=== PATIENT | male | born 1980 | race Two or more races ===

== ENCOUNTER 2019-05-01 11:18 | Emergency (ER) | payer OTHER ==
[2019-05-01 11:27] VITALS: TEMP 98.4; BMI 31.7
--- NOTE | 2019-05-01 12:52 | PDOC ---
History of Present Illness - History of Present Illness Initial Comments: Mr. Gricelda Quinn is a 38M with PMH of HLD presenting today with bilateral arm pain, heart palpitations, and shortness of breath that have since resolved. Reports that around 9am this morning he felt his heart racing and difficulty breathing, and shooting pain up both of his upper extremities. Reports that he has had similar episodes before. Reports that his living situation (with girlfriend and girlfriend's mother and his son) is occasionally stressful. Denies fever, chest pain, nausea/vomiting, cough. Reports that his father who is still living had some hx of heart disease, but is unsure of diagnosis. <Niranjan Grayson - Last Filed: 05/01/19 17:17> <Jazmin Pineda - Last Filed: 05/02/19 08:12> - General Chief Complaint: Chest Pain Stated Complaint: CHEST PAIN Time Seen by Provider: 05/01/19 11:56 Past History - Past Medical History COPD: No - Suicide/Smoking/Psychosocial Hx Smoking History: Never smoked <Niranjan Grayson - Last Filed: 05/01/19 17:17> <Jazmin Pineda - Last Filed: 05/02/19 08:12> - Past Medical History Allergies/Adverse Reactions: Allergies Allergy/AdvReac Type Severity Reaction Status Date / Time No Known Allergies Allergy Verified 05/01/19 11:27 Home Medications: Ambulatory Orders NK [No Known Home Medication] 05/01/19 Review of Systems - Review of Systems Comments:: GENERAL/CONSTITUTIONAL: No fever or chills. No weakness._ HEAD, EYES, EARS, NOSE AND THROAT: No change in vision. No ear pain or discharge. No sore throat._ CARDIOVASCULAR: No chest pain. Reports palpitations (resolved). Reports shortness of breath (resolved). RESPIRATORY: Denies cough, hemoptysis_ GASTROINTESTINAL: No nausea, vomiting, diarrhea or constipation._ GENITOURINARY: No dysuria, frequency, or change in urination._ MUSCULOSKELETAL: No joint. No neck or back pain. Reports pain in bilateral upper extremities. SKIN: No rash_ NEUROLOGIC: No headache, vertigo, loss of consciousness, or change in strength/ sensation._ ENDOCRINE: No increased thirst. No abnormal weight change_ HEMATOLOGIC/LYMPHATIC: No anemia, easy bleeding, or history of blood clots._ ALLERGIC/IMMUNOLOGIC: No hives or skin allergy._ <Niranjan Grayson - Last Filed: 05/01/19 17:17> *Physical Exam - Vital Signs Last Vital Signs Temp Pulse Resp BP Pulse Ox 98.4 F 94 H 18 118/80 100 05/01/19 11:24 05/01/19 11:24 05/01/19 11:24 05/01/19 11:24 05/01/19 11:24 - Physical Exam Comments: GENERAL: Awake, alert, and oriented to person/place/time, in no acute distress_ HEAD: No signs of trauma, normocephalic, atraumatic _ EYES: PERRLA, EOMI, sclera anicteric, conjunctiva clear_ ENT: Hearing grossly normal, nares patent, oropharynx clear without exudates. No uvular deviation. Moist mucosa_ NECK: Normal ROM, supple, no lymphadenopathy, JVD, or masses_ LUNGS: No distress, speaks in full sentences, clear to auscultation bilaterally _ HEART: Regular rate and rhythm, normal S1 and S2, no murmurs appreciated, peripheral pulses normal and equal bilaterally._ ABDOMEN: Soft, nontender, normoactive bowel sounds. No guarding, no rebound. No masses_ EXTREMITIES: Normal inspection, Normal range of motion, no edema. No clubbing or cyanosis_ NEUROLOGICAL: Cranial nerves II through XII grossly intact. Normal speech, normal gait, no focal sensorimotor deficits _ SKIN: Warm, Dry, normal turgor, no rashes or lesions noted_ <Niranjan Grayson - Last Filed: 05/01/19 17:17> - Vital Signs Last Vital Signs Temp Pulse Resp BP Pulse Ox 98.4 F 72 24 H 129/88 98 05/01/19 16:00 05/01/19 16:00 05/01/19 16:00 05/01/19 16:00 05/01/19 16:00 <Jazmin Pineda - Last Filed: 05/02/19 08:12> ED Treatment Course - LABORATORY CBC & Chemistry Diagram: 05/01/19 13:33 05/01/19 13:32 <Niranjan Grayson - Last Filed: 05/01/19 17:17> - LABORATORY CBC & Chemistry Diagram: 05/01/19 13:33 05/01/19 13:32 - ADDITIONAL ORDERS Additional order review: 05/01/19 13:33 RBC 5.05 MCV 82.8 MCHC 32.4 RDW 13.9 MPV 8.3 Neutrophils % 79.3 Lymphocytes % 14.8 Monocytes % 5.0 Eosinophils % 0.4 Basophils % 0.5 <Jazmin Pineda - Last Filed: 05/02/19 08:12> Medical Decision Making - Medical Decision Making 05/01/19 13:15 38M with hx of HLD, paternal hx of heart disease (unsure diagnosis), presenting today with heart palpitations, shortness of breath, and bilateral arm pain. Reports that he has had similar symptoms before and has been seeing a concert or lecture hall manager but is unsure of current diagnosis or plan. Reports occasional stressors at home. DDx includes ACS vs anxiety attack. We'll obtain CBC, CMP, CXR, EKG, troponins, magnesium. 05/01/19 13:40 EKG shows NSR, 85 bpm, no axis deviation, no ST elevation or depression, QTc 433 ms. 05/01/19 14:22 CXR shows no infiltrate or edema in the lungs, no acute intrathoracic process. 05/01/19 14:27 Troponin wnl. Will obtain repeat trop at 1630. 05/01/19 16:31 Repeat EKG shows NSR, 84 bpm, no axis deviation, no ST elevation or depression, QTc 460. 05/01/19 16:52 Repeat troponin wnl. 05/01/19 17:00 Patient reassessed. No CP, SOB. We will plan to d/c home and follow up with PCP and his concert or lecture hall manager. Diagnosis is likely anxiety related given social stressors at home and normal CXR and initial/repeat EKG and troponin. <Niranjan Grayson - Last Filed: 05/01/19 17:17> *DC/Admit/Observation/Transfer - Discharge Dispostion Decision to Admit order: No <Niranjan Grayson - Last Filed: 05/01/19 17:17> <Jazmin Pineda - Last Filed: 05/02/19 08:12> Diagnosis at time of Disposition: Paresthesia, Chest pain - Discharge Dispostion Disposition: HOME Condition at time of disposition: Stable - Referrals Referrals: Deejay,Ernesto, MD [Primary Care Provider] - - Patient Instructions Printed Discharge Instructions: DI for Chest Pain, DI for Atypical Chest Pain Additional Instructions: Please follow up with your PCP and your concert or lecture hall manager in 1 week. - Post Discharge Activity Forms/Work/School Notes: Back to Work
--- NOTE | 2019-05-01 13:07 | PDOC ---
Documentation entered by Marley Pedraza SCRIBE, acting as scribe for Jazmin Pineda MD. Jazmin Pineda MD: This documentation has been prepared by the Milo mendoza Xhesika, SCRIBE, under my direction and personally reviewed by me in its entirety. I confirm that the documentation accurately reflects all work, treatment, procedures, and medical decision making performed by me. Attending Attestation - Resident Resident Name: Niranjan Grayson - ED Attending Attestation I have performed the following: I have examined & evaluated the patient, The case was reviewed & discussed with the resident, I agree w/resident's findings & plan - HPI HPI: 05/01/19 12:57 The patient is a 38 year old male with a significant past medical history of undiagnosed HTN and high cholesterol who presents to the ED with L arm discomfort that radiates upward to his neck and down his L arm since 9am. The patient is [place] speaking with son at bedside translating. Son reports, the patient was in bed at the sudden onset of his arm discomfort. The patient notes he endorsed SOB and chest palpitations that have since self resolved. As per son , the patient saw a log processor operator (does not remember name) 2 months ago. Denies fever, chills, chest pain, SOB, palpitation, dizziness, weakness, N, V, D , abdominal pain, bladder and bowel problems, leg swelling, No sick contacts or travel. No new changes in medications. Allergies: NKDA Social history: Lives with family. No tobacco, ETOH or drug use. Meds: as documented in EMR PCP: Ernesto Horn - Physicial Exam PE: 05/01/19 12:58 Agree with the resident's HPI and PE as documented in the electronic medical record. NAD, well appearing, EOMI, PERRL, MMM, nl conjunctiva, anicteric; neck supple. lungs clear, RRR, abdomen soft nontender. Back nontender. SOLIS x4, no focal neuro deficits. No peripheral edema. normal color for ethnicity, WWP. - Medical Decision Making 05/01/19 13:07 See HPI for details. Prior notes reviewed, including admissions, discharges and consultations. Vital signs reviewed, wnl. DDX PE, dissection, ACS, arrhythmia, neuropathy, radiculopathy, anxiety, electrolyte/metabolic derangements, esophageal spasm, GERD, PUD. PERC neg, so doubt PE. laboratory results and imaging reviewed, basic labs and lytes wnl CXR_no acute chest pathology Cardiac panel_neg trop x1, repeat also neg EKG normal sinus rhythm at 85 bpm, no interval abnormalities, narrow QRS, ST and T wave segments and morphology normal. ED course -no events, comfortable, no cp or sob or neuro changes or dizziness on assessment, trops neg x2, EKG unchanged w/o e/o ischemia Pt to be discharged in stable condition. Patient and family made aware of clinical impression, treatment recommendations and disposition plan, return precautions discussed (including but not limited to new or persistent/worsening symptoms, pain, fevers, or signs of infection, chest pain, respiratory distress , inability to tolerate oral intake, dehydration, syncope, or neurologic changes ). Follow up with PMD and/or specialist as recommended, follow up information provided, take medications as instructed for duration of time. continue with supportive care, avoid triggers and precipitants. All questions answered to patient's satisfaction and expressed understanding and comfort with this. At the time of discharge, the patient is alert, clinically improved, tolerating po and verbalizes understanding of instructions, satisfied with the care received and felt comfortable with the plan. Patient does not suffer from an acute life- threatening medical condition at this time and is safe for outpatient follow- up. 05/01/19 14:55 Heart Score/ECG Review #1 ECG reviewed & interpreted by me at: 11:15 General ECG Interpretation: Sinus Rhythm, Normal Rate, Normal Intervals Compared to previous ECG there are: Previous ECG unavail 05/01/19 14:58 EKG normal sinus rhythm at 85 bpm, no interval abnormalities, narrow QRS, ST and T wave segments and morphology normal.
[2019-05-01 14:14] LABS: BASO % 0.5 % (0-2.0); EOS % 0.4 % (0-4.5); HEMATOCRIT 41.8 % (35.4-49); HEMOGLOBIN 13.5 GM/dL (11.7-16.9); LYMPH % 14.8 % (8-40); MCH 26.8 pg (25.7-33.7); MCHC 32.4 g/dl (32.0-35.9); MEAN CELL VOLUME 82.8 fl (80-96); MEAN PLT VOLUME 8.3 fl (7.5-11.1); NEUT % 79.3 % (42.8-82.8); PLATELET COUNT 222 K/MM3 (134-434); RBC 5.05 M/mm3 (4.00-5.60); RDW 13.9 % (11.9-15.9)
[2019-05-01 14:28] LABS: ALBUMIN 3.9 g/dl (3.4-5.0); BILIRUBIN,TOTAL 0.6 mg/dL (0.2-1); BLOOD UREA NITROGEN 13.6 mg/dL (7-18); CALCIUM 8.3 mg/dL (8.5-10.1); CREATININE 0.8 mg/dL (0.55-1.3); POTASSIUM 4.3 mmol/L (3.5-5.1); TOT PROT 7.2 g/dl (6.4-8.2)
[2019-05-01 16:14] VITALS: BP 129/88; PULSE 72
--- NOTE | 2019-05-01 17:38 | EKG ---
Test Reason : Blood Pressure : / mmHG Vent. Rate : 085 BPM Atrial Rate : 085 BPM P-R Int : 154 ms QRS Dur : 094 ms QT Int : 364 ms P-R-T Axes : 062 -02 033 degrees QTc Int : 433 ms NORMAL SINUS RHYTHM NORMAL ECG NO PREVIOUS ECGS AVAILABLE Confirmed by CHAPARRITA FONSECA MD ([id number]) on 05/01/2019 5:38:03 PM Referred By: Confirmed By:CHAPARRITA FONSECA MD
--- NOTE | 2019-05-02 09:25 | EKG ---
Test Reason : Blood Pressure : / mmHG Vent. Rate : 084 BPM Atrial Rate : 084 BPM P-R Int : 146 ms QRS Dur : 098 ms QT Int : 390 ms P-R-T Axes : 049 -15 020 degrees QTc Int : 460 ms NORMAL SINUS RHYTHM NORMAL ECG WHEN COMPARED WITH ECG OF 01-MAY-2019 11:13, NO SIGNIFICANT CHANGE WAS FOUND Confirmed by CALOS GALLARDO MD ([id number]) on 05/02/2019 9:25:02 AM Referred By: Confirmed By:CALOS GALLARDO MD
== END 2019-05-01 17:39 | disposition home or self-care (01) ==
LOC: EDSEX 11:18 → JER 11:18
DX: R20.2 Paresthesia of skin (principal); R07.89 Other chest pain; E78.5 Hyperlipidemia, unspecified
CPT/HCPCS: 36415; 71045-TC-FY; 80053; 82550; 84484; 85025; 93005; 93010; 99284-25

== ENCOUNTER 2020-08-13 03:50 | Emergency (ER) | payer OTHER ==
[2020-08-13 03:59] VITALS: BMI 31.3
--- OUTSIDE RECORDS SUMMARY | 2020-08-13 04:02 | XMS ---
:1980 Author Organization [facility] Care Team Providers Name Role Phone ED STAFF PHYSICIANCALOS Unavailable Unavailable Ortiz, Latosha Unavailable Unavailable Ortiz, Latosha Unavailable Unavailable Ortiz, Latosha Unavailable Unavailable Ortiz, Latosha Unavailable Unavailable Ortiz, Latosha Unavailable Unavailable Ortiz, Latosha Unavailable Unavailable Ortiz, Latosha Unavailable Unavailable Ortiz, Latosha Unavailable Unavailable Ortiz, Latosha Unavailable Unavailable Ortiz, Latosha Unavailable Unavailable Maxim Mcclain Unavailable [phone] Wei, Jolie C Unavailable Unavailable Wei, C Unavailable Unavailable Wei, C Unavailable Unavailable Wei, C Unavailable Unavailable Wei, C Unavailable Unavailable Wei, C Unavailable Unavailable Wei, C Unavailable Unavailable Wei, C Unavailable Unavailable Wei, C Unavailable Unavailable ED STAFF PHYSICIAN Unavailable Unavailable Mendez Unavailable [phone] Mendez Unavailable [phone] KYLIE GANDHI Unavailable Unavailable NEHAL MORLEY Unavailable Unavailable ED STAFF PHYSICIAN Unavailable Unavailable ED STAFF PHYSICIAN Unavailable Unavailable Re-disclosure Warning The records that you are about to access may contain information from federally- assisted alcohol or drug abuse programs. If such information is present, then the following federally mandated warning applies: This information has been disclosed to you from records protected by federal confidentiality rules (42 CFR part 2). The federal rules prohibit you from making any further disclosure of this information unless further disclosure is expressly permitted by the written consent of the person to whom it pertains or as otherwise permitted by 42 CFR part 2. A general authorization for the release of medical or other information is NOT sufficient for this purpose. The Federal rules restrict any use of the information to criminally investigate or prosecute any alcohol or drug abuse patient.The records that you are about to access may contain highly sensitive health information, the redisclosure of which is protected by Article 27-F of the [facility] Public Health law. If you continue you may haveaccess to information: Regarding HIV / AIDS; Provided by facilities licensed or operated by the [facility] Office of Mental Health; or Provided by the [facility] Office for People With Developmental Disabilities. If such information is present, then the following [facility] mandated warning applies: This information has been disclosed to you from confidential records which are protected by state law. State law prohibits you from making any further disclosure of this information without the specific written consent of the person to whom it pertains, or as otherwise permitted by law. Any unauthorized further disclosure in violation of state law may result in a fine or senior living sentence or both. A general authorization for the release of medical or other information is NOT sufficient authorization for further disclosure. Family History Family Member Family Member Family Member Date of Description Data Source(s) Name Gender Status Status Unknown Male Problem 07/28/2016 [facility] ([facility]) 12:00:00 AM Kristie Medic me EDT Center) Encounters Encounter Providers Location Date Indications Data Source(s ) Attender: [facility] 07/02/2020 [facility] ([facility] 02:48:00 Kristie Medica l PM EDT - Center) 07/02/2020 02:48:00 PM EDT Outpatient Attender: JORGE Harden 05/17/2020 [facility] 03:23:00 Medical Juan GANDHIAdmitter: PM EDT JORGE GANDHIReferrer: JORGE GANDHI Attender: Maxim 05/17/2020 [facility] ( [facility] Tampajose Mcclain 03:23:00 Kristie Medic al PM EDT - Center) 05/17/2020 03:23:00 PM EDT Outpatient 05/17/2020 [facility] 02:06:00 Medical Center PM EDT Outpatient [id number] 05/17/2020 eCW1 ([facility] 12:00:00 Kristie Medic al AM EDT Practice PC) Outpatient 05/17/2020 [facility] 12:00:00 Medical Center AM EDT Outpatient 05/04/2020 [facility] 02:16:00 Medical Center PM EDT Outpatient Attender: Latosha Harden 05/04/2020 [facility] VelezAdmitter: 01:00:00 Medical Ce nter Latosha PM EDT VelezReferrer: Latosha Ortiz OutpatientOFFICE/ Attender: [facility] 05/04/2020 Umair HDEZ ([facility] VISIT, [facility] 01:00:00 [facility] Medical [facility] PM EDT - Center) 05/04/2020 01:00:00 PM EDT Outpatient 05/04/2020 [facility] 09:12:00 Medical Center AM EDT Outpatient 05/04/2020 [facility] 12:00:00 Medical Center AM EDT Attender: [facility] 05/02/2020 NEXT ([facility] 05:16:00 Kristie Medica l PM EDT - Center) 05/02/2020 05:16:00 PM EDT Outpatient Attender: Latosha Harden 04/20/2020 [facility] VelezAdmitter: 02:59:00 Medical Ce nter Latosha PM EDT VelezReferrer: Latosha Ortiz PHONE E/M BY PHYS Attender: [facility] 04/20/2020 [facility] 02:59:00 Kristie Medic al PM EDT - Center) 04/20/2020 02:59:00 PM EDT Outpatient 04/20/2020 [facility] 02:57:00 Medical Center PM EDT Outpatient 04/20/2020 [facility] 12:00:00 Medical Center AM EDT Attender: [facility] 04/12/2020 [facility] ([facility] 12:11:00 Kristie Medica l PM EDT - Center) 04/12/2020 12:11:00 PM EDT Outpatient 04/10/2020 [facility] 03:25:00 Medical Center PM EDT Outpatient Attender: Latosha Harden 04/10/2020 [facility] VelezAdmitter: 02:32:00 Medical Ce nter Latosha PM EDT VelezReferrer: Latosha Ortiz OutpatientOFFICE/ Attender: [facility] 04/10/2020 Umair EXT ([facility] OUTPATIENT VISIT, [facility] 02:32:00 Kristie Medical EST PM EDT - Center) 04/10/2020 02:32:00 PM EDT Outpatient 04/10/2020 [facility] 12:00:00 Medical Center AM EDT Attender: [facility] 04/06/2020 [facility] ([facility] 10:35:00 Kristie Medica l AM EDT - Center) 04/06/2020 10:35:00 AM EDT Attender: [facility] 02/29/2020 [facility] ([facility] 04:31:00 Kristie Medica l PM EDT - Center) 02/29/2020 04:31:00 PM EDT Outpatient 02/28/2020 [facility] 02:56:00 Medical Center PM EDT Outpatient 02/28/2020 [facility] 12:00:00 Medical Center AM EDT Attender: [facility] 02/24/2020 [facility] ([facility] 04:38:00 Kristie Medica l PM EDT - Center) 02/24/2020 04:38:00 PM EDT Outpatient 12/30/2019 [facility] 04:29:00 Medical Center PM EDT Outpatient Attender: Latosha Harden 12/30/2019 [facility] VelezAdmitter: 10:44:00 Medical Ce nter Latosha AM EDT VelezReferrer: Latosha Ortiz OutpatientOFFICE/ Attender: [facility] 12/30/2019 [facility] ([facility] OUTPATIENT VISIT, [facility] 10:44:00 Kristie Medical EST AM EDT - Center) 12/30/2019 10:44:00 AM EDT Outpatient 12/30/2019 [facility] 12:00:00 Medical Center AM EDT Attender: [facility] 12/29/2019 [facility] ([facility] 02:13:00 Kristie Medica l PM EDT - Center) 12/29/2019 02:13:00 PM EDT Emergency Attender: ED H 12/17/2019 [facility] STAFF 01:23:00 Medical Center PHYSICIANAttende PM EST - r: RICHI ED 12/17/2019 STAFF 08:47:00 PHYSICIANAttende PM EST r: STAFF ED STAFF PHYSICIANAdmitte r: ED STAFF PHYSICIAN Patient discharged. Emergency Attender: CALOS ED STAFF H 12/12/2019 09:58:00 PM [facility] PHYSICIANAttender: STAFF ED EST - 12/13/2019 Medical Center STAFF PHYSICIANAdmitter: 08:57:00 AM EST CALOS ED STAFF PHYSICIAN Patient discharged. Attender: [facility] 10/11/2019 [facility] ([facility] 11:57:00 AM [facility] 10/11/2019 Center) 11:57:00 AM EST Outpatient Attender: Latosha Harden 09/20/2019 [facility] fco DianaAdmitter: 02:53:00 PM EST Medic al Center Latosha OrtizReferrer: Latosha Ortiz OutpatientOFFICE/OU Attender: [facility] 09/20/2019 [facility] ([facility] TPATIENT VISIT, [facility] 02:53:00 PM [facility] 09/20/2019 Center) 02:53:00 PM EST Outpatient 09/20/2019 [facility] 02:31:00 PM EST Medical C enter Outpatient 09/20/2019 [facility] 12:00:00 AM EST Medical C enter Attender: [facility] 09/16/2019 [facility] ([facility] 11:16:00 AM [facility] 09/16/2019 Center) 11:16:00 AM EST Outpatient Attender: MILLI Harden 06/27/2019 [facility] Courtney CALVERT 12:55:00 PM EDT Medical C enter MILLIAdmitter: MILLI MORLEYReferrer: MILLI MORLEY OutpatientOFFICE/OU Attender: [facility] 06/27/2019 [facility] ([facility] TPATIENT VISIT, [facility] 12:55:00 PM EDT [facility] 06/27/2019 Center) 12:55:00 PM EDT Outpatient 06/27/2019 [facility] 09:59:00 AM EDT Medical C enter Outpatient 06/27/2019 [facility] 12:00:00 AM EDT Medical C enter Immunizations Vaccine Date Status Description Data Source(s) New in 2011. IIV4 12/30/2019 completed Influenza, Injectable, [facility] ([facility] 12:00:00 AM EDT Quadrivalent [facility]) Source: New Immunization Record Medications Medication Brand Start Product Dose Route Administrative Pharmacy [facility] Indications Reaction Description Data Name Date Form Instructions Instructions Source(s) Sertraline sertra ORAL active take 1 N EXTGEN 25 MG Oral line 2019 {tabl tablet by (Sa int Tablet 25 mg 12:00: et} oral route Jorge phs sertraline tablet 00 AM every day M edical 25 mg EDT Center) tablet halobetasol halobe 04/10/ TOPICA active apply by [facility] propionate tasol 2020 L topical (April t 0.0005 propio 12:00: route every J osephs MG/MG darrian 00 AM day a thin Medical Topical 0.05 % EDT layer to the Ce nter) Ointment topica affected halobetasol l area(s) do propionate ointme not exceed 0.05 % nt 50 grams per topical week or 2 ointment weeks duration cetirizine cetiri ORAL active take 1 N EXTGEN hydrochlori zine 2019 {tabl tablet by (S aint de 10 MG 10 mg 12:00: et} oral route Courtney sephs Oral Tablet tablet 00 AM every day Medical cetirizine EDT Center) 10 mg tablet blood blood 09/20/ active use to [facility]EXT[facility] pressure pressu 2019 monitor ([facility] monitor kit re 12:00: Blood Armando hs test 00 AM pressure as Medical kit EST indicated Center) ICD 10 : R 03.0 Naproxen 500 MG Naprosyn 500 06/27/2019 1.00 ORAL completed Naproxen [facility] Oral Tablet mg tablet 12:00:00 AM {tbl} 500 MG Oral ( [Naprosyn] EDT Tablet Kristie Naprosyn 500 mg [Naprosyn ] Medical tablet Center) Ibuprofen 600 ibuprofen 600 06/27/2019 completed take 1 [facility] MG Oral Tablet mg tablet 12:00:00 AM tablet by ( ibuprofen 600 EDT oral route Kristie mg tablet 2 times Medical every day Center) with food as needed for pain Hydroxyzine hydroxyzine 05/05/2019 1 ORAL completed take 1 [facility] Hydrochloride HCl 25 mg 12:00:00 AM {tbl} tablet by ([facility] 25 MG Oral tablet EDT oral route J osephs Tablet every day Medical hydroxyzine HCl as needed Center) 25 mg tablet Insurance Providers Payer name Policy type Policy ID Covered Covered green party's Policy P emilio / Coverage green party ID relationship to [place] [employer] ormation type [place] [employer] FIRST [id number] SP [id number] B MVP MEDICAID [id number] SP [id number] HMO MVP/HHP [id number] self [id number] HMO DAME[place] O [id number] 01 [id number] HEALTHFIRST MVP/HHP O [id number] 01 [id number] 700 O [facility] [id number] self [id number] [facility] HEALTH [id number] SP [id number] CARE Dental [id number] S [id number] [employer] MKD [place] [id number] S [id number] 700 Vision MKD [place] [facility] [id number] S [id number] Options MKD Medicaid [id number] S [id number] Regular Clinic Visit [facility] Medicaid [id number] S [id number] Managed Care Problems, Conditions, and Diagnoses Code Display Name Description Problem Type Effective Data Dates Source(s) R07.89 Other chest pain OTHER CHEST PAIN Diagnosis 05/17/2020 [facility] 03:23:00 PM Medical EDT Center Z71.89 Other specified OTHER SPECIFIED Diagnosis 05/04/2020 April Flowers counseling COUNSELING 01:00:00 PM Medical EDT Center F41.0 Panic disorder PANIC DISORDER Diagnosis 05/04/2020 [facility] [episodic paroxysmal (EPISODIC 01:00:00 PM Med ical anxiety] PAROXYSMAL ANXIETY) EDT [facility] R06.02 Shortness of breath SHORTNESS OF BREATH Diagnosis 020 [facility] 02:59:00 PM Medical EDT Center Z68.30 Body mass index BODY MASS INDEX Diagnosis 04/10/2020 April Flowers (BMI) 30.0-30.9, (BMI) 30.0-30.9, 02:32:00 PM edical adult ADULT EDT Center R21 Rash and other RASH AND OTHER Diagnosis 04/10/2020 [facility] nonspecific skin NONSPECIFIC SKIN 02:32:00 PM edical eruption ERUPTION EDT Center F43.22 Adjustment disorder ADJUSTMENT DISORDER Diagnosis 020 [facility] with anxiety WITH ANXIETY 02:32:00 PM Medical EDT Center Z13.9 Encounter for ENCOUNTER FOR Diagnosis 04/10/2020 [facility]ney carty screening, SCREENING, 02:32:00 PM Medical unspecified UNSPECIFIED EDT Center Z01.84 Encounter for ENCOUNTER FOR Diagnosis 04/10/2020 [facility] carty antibody response ANTIBODY RESPONSE 02:32:00 PM Medical examination EXAMINATION EDT Center Z00.00 Encounter for ENCNTR FOR GENERAL Diagnosis 04/10/2020 Alex villegas Kristie general adult ADULT MEDICAL EXAM 02:32:00 PM Me dical medical examination W/O ABNORMAL EDT Addi ter without abnormal FINDINGS findings Z23 Encounter for ENCOUNTER FOR Diagnosis 12/30/2019 [facility] carty immunization IMMUNIZATION 10:44:00 AM Medical EDT Center K75.81 Nonalcoholic NONALCOHOLIC Diagnosis 12/30/2019 [facility] Patel phs steatohepatitis STEATOHEPATITIS 10:44:00 AM Med ical (JIMENEZ) (JIMENEZ) EDT Center K27.9 Peptic ulcer, site PEPTIC ULC, SITE Diagnosis 12/17/2019 [facility] unspecified, UNSP, UNSP AC OR 01:23:00 PM Me dical unspecified as acute CHR, W/O HEMOR OR EST Center or chronic, without PERF hemorrhage or perforation R10.9 Unspecified UNSPECIFIED Diagnosis 12/17/2019 [facility] Cornelio espinoza abdominal pain ABDOMINAL PAIN 01:23:00 PM Medic al EST Center K56.7 Ileus, unspecified ILEUS, UNSPECIFIED Diagnosis 0 [facility] 09:58:00 PM Medical EST Center Z68.31 Body mass index BODY MASS INDEX Diagnosis 09/20/2019 April Flowers (BMI) 31.0-31.9, (BMI) 31.0-31.9, 02:53:00 PM edical adult ADULT EST Center Z71.3 Dietary counseling DIETARY COUNSELING Diagnosis 9 [facility] and surveillance AND SURVEILLANCE 02:53:00 PM edical EST Center Z11.3 Encounter for ENCNTR SCREEN FOR Diagnosis 09/20/2019 April Flowers screening for INFECTIONS W SEXL 02:53:00 PM Med ical infections with a MODE OF TRANSMISS EST Center predominantly sexual mode of transmission E78.5 Hyperlipidemia, HYPERLIPIDEMIA, Diagnosis 09/20/2019 April Flowers unspecified UNSPECIFIED 02:53:00 PM Medical EST Center R03.0 Elevated ELEVATED Diagnosis 09/20/2019 [facility] blood-pressure BLOOD-PRESSURE 02:53:00 PM Medic al reading, without READING, W/O EST Center diagnosis of DIAGNOSIS OF HTN hypertension M54.5 Low back pain LOW BACK PAIN Diagnosis 06/27/2019 [facility] Courtney carty 12:55:00 PM Medical EDT Center Surgeries/Procedures Procedure Description Date Indications Data Source(s) OFFICE/OUTPATIENT VISIT, 05/04/2020 NEX TGEN ([facility] EST 12:00:00 AM EDT [facility] - 05/04/2020 [facility]) 12:00:00 AM EDT PHONE E/M BY PHYS 04/20/2020 NEXT [facility] ([facility] MIN 12:00:00 AM EDT [facility] 04/20/2020 [facility]) 12:00:00 AM EDT OFFICE/OUTPATIENT VISIT, 04/10/2020 NEX TGEN ([facility] EST 12:00:00 AM EDT [facility] 04/10/2020 [facility]) 12:00:00 AM EDT ROUTINE VENIPUNCTURE 04/10/2020 [facility] ([facility] 12:00:00 AM EDT [facility] 04/10/2020 [facility]) 12:00:00 AM EDT Influenza, Injectable, 3 12/30/2019 NEX TGEN ([facility] Yrs Or Older 12:00:00 AM EDT [facility] 12/30/2019 [facility]) 12:00:00 AM EDT Immunization 12/30/2019 [facility] ([facility] Administration 12:00:00 AM EDT [facility] dical - 12/30/2019 [facility]) 12:00:00 AM EDT OFFICE/OUTPATIENT VISIT, 12/30/2019 NEX TGEN ([facility] EST 12:00:00 AM EDT [facility] 12/30/2019 [facility]) 12:00:00 AM EDT OFFICE/OUTPATIENT VISIT, 09/20/2019 NEX TGEN ([facility] EST 12:00:00 AM EST [facility] 09/20/2019 [facility]) 12:00:00 AM EST OFFICE/OUTPATIENT VISIT, 06/27/2019 NEX TGEN ([facility] EST 12:00:00 AM EDT [facility] 06/27/2019 [facility]) 12:00:00 AM EDT Results ID Date Data Source cvc ecg 05/17/2020 05:34:59 AM EDT eCW1 ([facility]) Name Value Range Interpretation Code Description Data Cheryle rce(s) Supporting Document(s ) cvc ecg eCW1 ([facility]) ID Date Data Source Liver 04/10/2020 03:45:00 PM EDT [facility] [id number] Name Value Range Interpretation Description Data Sup porting Code Source(s) Document(s ) Aspartate 17-59 <content [facility] aminotransferase styleCode="Bold"> Armando hs [Enzymatic Aspartate Medical activity/volume] Aminotransferase Center in Serum or Plasma (AST) </content>31 IU/L<content styleCode="Italic s"> (17-59 IU/L)</content> Bilirubin.total 0.2-1.3 <content [facility] [Mass/volume] in styleCode="Bold"> Armando hs Serum or Plasma Bilirubin Total Medical </content>0.3 Center MG/DL<content styleCode="Italic s"> (0.2-1.3 MG/DL)</content> Albumin 3.5-5.0 <content [facility] [Mass/volume] in styleCode="Bold"> Armando hs Serum or Plasma Albumin Medical </content>4.4 Center G/DL<content styleCode="Italic s"> (3.5-5.0 G/DL)</content> Alkaline 38-126 <content [facility] phosphatase styleCode="Bold"> Kristie [Enzymatic Alkaline Medical activity/volume] Phosphatase (ALP) Cente r in Serum or Plasma </content>79 IU/L<content styleCode="Italic s"> (38-126 IU/L)</content> Alanine 7-50 <content [facility] aminotransferase styleCode="Bold"> Armando hs [Enzymatic Alanine Medical activity/volume] Aminotransferase Center in Serum or Plasma (ALT) </content>22 IU/L<content styleCode="Italic s"> (7-50 IU/L)</content> ID Date Data Source LIPID.[id number] 04/10/2020 03:45:00 PM EDT [facility] Name Value Range Interpretation Description Data Sup porting Code Source(s) Document(s ) Triglyceride < 150 <content [facility] [Mass/volume] in styleCode="[facility] Serum or Plasma d">Triglycerid Medical es Center </content>126 MG/DL<content styleCode="Kirti lics"> (< 150 MG/DL)</conten t> UNK > 60 Below low normal <content Saint styleCode="[facility] d">HDL- Medical Cholesterol Center </content>55 MG/DL L<content styleCode="Kirti lics"> (> 60 MG/DL)</conten t> UNK < 100 Above high normal <content Saint styleCode="[facility] d">LDL-Cholest [facility] rey Center </content>126 MG/DL H<content styleCode="Kirti lics"> (< 100 MG/DL)</conten t> Cholesterol -<200 Above high normal <content Saint [Mass/volume] in styleCode="[facility] Serum or Plasma d">Cholesterol Medical </content>206 Center MG/DL H<content styleCode="Kirti lics"> (-<200 MG/DL)</conten t> ID Date Data Source HematologyRou.[id number] 04/10/2020 03:45:00 PM EDT [facility] 0400 Name Value Range Interpretation Description Data Sup porting Code Source(s) Document(s ) Hemoglobin 13.5-17. <content [facility] [Mass/volume] in 5 styleCode="Bold Kristie Blood ">Hemoglobin Medical </content>13.5 Center G/DL<content styleCode="Ital ics"> (13.5-17.5 G/DL)</content> Erythrocytes 4.4-5.9 <content Saint [#/volume] in styleCode="Bold Kristie Blood by ">Red Blood Medical Automated count Cell Count Center </content>4.92 MCUMM<content styleCode="Ital ics"> (4.4-5.9 MCUMM)</content > Leukocytes 4.4-11.0 <content Saint [#/volume] in styleCode="Bold Kristie Blood by ">White Blood Medical Automated count Cell Count Center </content>7.11 KCUMM<content styleCode="Ital ics"> (4.4-11.0 KCUMM)</content > Hematocrit 41.0-53. <content Saint [Volume 0 styleCode="Bold Kristie Fraction] of ">Hematocrit Medical Blood by </content>41.5 Center Automated count %<content styleCode="Ital ics"> (41.0-53.0 %)</content> Erythrocyte mean 26.0-34. <content Saint corpuscular 0 styleCode="Bold Kristie hemoglobin ">Mean Medical [Entitic mass] Corposcular Center by Automated Hemoglobin count </content>27.4 PG<content styleCode="Ital ics"> (26.0-34.0 PG)</content> Erythrocyte mean 32.0-37. <content [facility] corpuscular 0 styleCode="Bold Kristie hemoglobin ">Mean Corpus. Medical concentration Hgb Center [Mass/volume] by Concentration Automated count (MCHC) </content>32.5 G/DL<content styleCode="Ital ics"> (32.0-37.0 G/DL)</content> Platelets 130-400 <content Saint [#/volume] in styleCode="Bold Kristie Blood by ">Platelet Medical Automated count Count Center </content>234 KCUMM<content styleCode="Ital ics"> (130-400 KCUMM)</content > Erythrocyte 11.5-14. <content [facility] distribution 5 styleCode="Bold Kristie width [Ratio] by ">Red Cell Medical Automated count Distribution Center Width </content>13.3 %<content styleCode="Ital ics"> (11.5-14.5 %)</content> Erythrocyte mean 80.0-100 <content [facility] corpuscular .0 styleCode="Bold Kristie volume [Entitic ">Mean Medical volume] by Corpuscular Center Automated count Volume </content>84.3 FL<content styleCode="Ital ics"> (80.0-100.0 FL)</content> UNK 0.0 <content Saint styleCode="Bold Kristie ">Nucleated Red Medical Blood Cell Center Count </content>0.00 KCUMM<content styleCode="Ital ics"> (0.0 KCUMM)</content > UNK 0 <content Saint styleCode="Bold Kristie ">Nucleated Red Medical Blood Cell Center </content>0.0 /100<content styleCode="Ital ics"> (0 /100)</content> Platelet mean 8.0-11.0 <content Saint volume [Entitic styleCode="Bold Kristie volume] in Blood ">Mean Platelet Medical by Automated Volume Center count </content>10.5 FL<content styleCode="Ital ics"> (8.0-11.0 FL)</content> ID Date Data Source GFR(Creatinine).[id number] 04/10/2020 03:45:00 PM EDT [facility] 0-0400 Name Value Range Interpretation Code Description Data Cheryle rce(s) Supporting Document(s ) UNK > 60 <content [facility] styleCode="Bold"> Medical Cent er EGFR </content>100 GFR<content styleCode="Italic s"> (> 60 GFR)</content> ID Date Data Source CHMROUTINECCDA.[id number] 04/10/2020 03:45:00 PM EDT [facility] -0400 Name Value Range Interpretation Description Data Sup porting Code Source(s) Document(s ) UNK >= 1.0 <content [facility] styleCode="Bold Medical ">AG Ratio Center </content>1.4 <content styleCode="Ital ics"> (>= 1.0 )</content> UNK 2.3-3.5 <content [facility] styleCode="Bold Medical ">Globulin Center </content>3.2 G/DL<content styleCode="Ital ics"> (2.3-3.5 G/DL)</content> Protein 6.3-8.2 <content [facility] [Mass/volum styleCode="Bold Medical e] in Serum ">Total Protein Center or Plasma </content>7.6 G/DL<content styleCode="Ital ics"> (6.3-8.2 G/DL)</content> UNK 4.2-5.8 <content [facility] Kristie styleCode="Bold Medical ">Hemoglobin Center A1C </content>5.6 %<content styleCode="Ital ics"> (4.2-5.8 %)</content> ID Date Data Source [facility].[id number] 04/10/2020 03:45:00 PM EDT [facility] Center Name Value Range Interpretation Description Data Sup porting Code Source(s) Document(s ) Sodium 137-145 <content Saint [Moles/volume] in styleCode="Bold"> Jorge phs Serum or Plasma Sodium Medical </content>137 Center MEQ/L<content styleCode="Italic s"> (137-145 MEQ/L)</content> Potassium 3.5-5.3 <content Saint [Moles/volume] in styleCode="Bold"> Jorge phs Serum or Plasma Potassium Medical </content>4.3 Center MEQ/L<content styleCode="Italic s"> (3.5-5.3 MEQ/L)</content> Chloride 98-107 <content Saint [Moles/volume] in styleCode="Bold"> Jorge phs Serum or Plasma Chloride Medical </content>103 Center MEQ/L<content styleCode="Italic s"> (98-107 MEQ/L)</content> Carbon dioxide, 22-30 <content Saint total styleCode="Bold"> Kristie [Moles/volume] in Carbon Dioxide Medical Serum or Plasma </content>27 Center MEQ/L<content styleCode="Italic s"> (22-30 MEQ/L)</content> UNK 9-20 <content Saint styleCode="Bold"> Kristie BUN </content>18 Medical MG/DL<content Center styleCode="Italic s"> (9-20 MG/DL)</content> Glucose 74-106 <content Saint [Mass/volume] in styleCode="Bold"> Armando hs Serum or Plasma Glucose Medical </content>90 Center MG/DL<content styleCode="Italic s"> (74-106 MG/DL)</content> Creatinine 0.5-1.3 <content Saint [Mass/volume] in styleCode="Bold"> Armando hs Serum or Plasma Creatinine Medical </content>0.9 Center MG/DL<content styleCode="Italic s"> (0.5-1.3 MG/DL)</content> Calcium 8.4-10. <content Saint [Mass/volume] in 2 styleCode="Bold"> Armando hs Serum or Plasma Calcium Medical </content>9.3 Center MG/DL<content styleCode="Italic s"> (8.4-10.2 MG/DL)</content> UNK > 60 <content Saint styleCode="Bold"> Kristie EGFR Medical </content>100 Center GFR<content styleCode="Italic s"> (> 60 GFR)</content> Alkaline 38-126 <content Saint phosphatase styleCode="Bold"> Kristie [Enzymatic Alkaline Medical activity/volume] Phosphatase (ALP) Cente r in Serum or Plasma </content>79 IU/L<content styleCode="Italic s"> (38-126 IU/L)</content> Aspartate 17-59 <content Saint aminotransferase styleCode="Bold"> Armando hs [Enzymatic Aspartate Medical activity/volume] Aminotransferase Center in Serum or Plasma (AST) </content>31 IU/L<content styleCode="Italic s"> (17-59 IU/L)</content> Alanine 7-50 <content Saint aminotransferase styleCode="Bold"> Armando hs [Enzymatic Alanine Medical activity/volume] Aminotransferase Center in Serum or Plasma (ALT) </content>22 IU/L<content styleCode="Italic s"> (7-50 IU/L)</content> Albumin 3.5-5.0 <content Saint [Mass/volume] in styleCode="Bold"> Armando hs Serum or Plasma Albumin Medical </content>4.4 Center G/DL<content styleCode="Italic s"> (3.5-5.0 G/DL)</content> Bilirubin.total 0.2-1.3 <content Saint [Mass/volume] in styleCode="Bold"> Armando hs Serum or Plasma Bilirubin Total Medical </content>0.3 Center MG/DL<content styleCode="Italic s"> (0.2-1.3 MG/DL)</content> ID Date Data Source [id number] 04/10/2020 03:45:00 PM EDT [facility] ([facility] [id number] Faison) Name Value Range Interpretation Code Description Data Cheryle rce(s) Supporting Document(s ) NON-REACTI NON-REACTI RPR [facility] ([facility]) The Macro-Vicki RPR (Rapid Plasma Reagin) 18mm [place] Card Test is anontreponemal testing procedure for the serologic dete ction of syphilis.

ID Date Data Source [id number] 04/10/2020 03:45:00 PM EDT [facility] EN ([facility] [id number] Faison) Name Value Range Interpretation Code Description Data Cheryle rce(s) Supporting Document(s ) 5.6 % 4.2-5.8 HB A1C [facility] ([facility]) For the purpose of screening for the pre sence of diabetes:< 5.8 % Consistent with the absence of diabetes5 .8 - 6.4 % Consistent with increased risk for diabetes(prediabetes)> or = 6.5 % Consistent with diabetesCurrently, no consensus exists for use of hemoglobin A 1cfor diagnosis of diabetes in children.According to [place] Diabetes Association (ADA) guidelines.Hemoglobin A1c <7.0% represents optimal control in non- diabetic patients. Different metrics may apply tospecific patient populations . Standards of medical Care inDiabetes (ADA).

ID Date Data Source [id number] 04/10/2020 03:45:00 PM EDT [facility] EN ([facility] [id number] Faison) Name Value Range Interpretation Code Description Data Cheryle rce(s) Supporting Document(s ) NON-REACTI NON-REACTI HIV Combo [facility] ([facility]) The Anti HIV 1 +2 test is not intended f or blood donor screening, or forindividuals less than 2 years old.This test was run using GridCure0immunodiagnostic system.The result if reactive is PRELIMINARY, aconf irmatory test will follow and this confirmatory result MUST beconsidered in conjunction with other serologic evidence and clinicalinformation in the diagnosis of infection with HIV-1 and/or HIV-2 inpersons with signs, or symptoms or ris k of HIV infection.The HIV 1 & 2 test does not distinguish between HIV-1 p24, HIV-1 antibodydetection, or HIV-2 antibody detection

ID Date Data Source [id number] 04/10/2020 03:45:00 PM EDT [facility] EN ([facility] [id number] Faison) Name Value Range Interpretation Code Description Data Cheryle rce(s) Supporting Document(s ) 126 MG/DL < 150 TRIGLYCERIDES [facility] ([facility]) 126 MG/DL < 100 Above high normal LDL- CALC [facility] ([facility]) 55 MG/DL > 60 Below low normal HDL- CHOL [facility] ([facility]) 206 MG/DL <200 Above high normal CHOLESTEROL [facility] ([facility]) ID Date Data Source [id number] 04/10/2020 03:45:00 PM EDT [facility] EN ([facility] [id number] Faison) Name Value Range Interpretation Code Description Data Supporting Source(s) Document(s ) 137 MEQ/L 137-145 SODIUM [facility]) 4.3 MEQ/L 3.5-5.3 POTASSIUM [facility]) 103 MEQ/L 98-107 CHLORIDE [facility] ([facility]) 27 MEQ/L 22-30 CARBON DIOXIDE [facility] ([facility]) 7.6 G/DL 6.3-8.2 TOTAL PROTEIN [facility] ([facility]) 4.4 G/DL 3.5-5.0 ALBUMIN [facility] ([facility]) 1.4 >= 1.0 AG RATIO [facility] ([facility]) 3.2 G/DL 2.3-3.5 GLOBULIN [facility]) 31 IU/L 17-59 AST (GOT) [facility] ([facility]) 22 IU/L 7-50 ALT [facility] ([facility]) 79 IU/L 38-126 ALP [facility] ([facility]) 100 GFR > 60 eGFR [facility] ([facility]) Estimated GFR is calculated using the Mo dification of Diet in RenalDisease (MDRD) Study equation, and normalized to 1.73m2 body surfce area.The MDRD study equation should only be used in individuals age 1 8 orolder. It has not been validated for the following: women,patients with serious comorbid conditions, or on certain medications, orpersons with extremes of body size, muscle mass, or nutritional status.

9.3 MG/DL 8.4-10.2 CALCIUM [facility] ([facility]) 0.9 MG/DL 0.5-1.3 CREATININE [facility] ([facility]) 18 MG/DL 9-20 BUN [facility] ([facility]) 0.3 MG/DL 0.2-1.3 BILI, TOTAL [facility] ([facility]) 90 MG/DL 74-106 GLUCOSE [facility] ([facility]) ID Date Data Source [id number] 04/10/2020 03:45:00 PM EDT [facility] EN ([facility] [id number] Faison) Name Value Range Interpretation Code Description Data Cheryle rce(s) Supporting Document(s ) 7.11 KCUMM 4.4-11.0 WBC [facility]) 4.92 MCUMM 4.4-5.9 RBC [facility] ([facility]) 13.5 G/DL 13.5-17.5 HGB [facility] ([facility]) 41.5 % 41.0-53.0 HCT [facility] ([facility]) 84.3 FL 80.0-100.0 MCV [facility]) 32.5 G/DL 32.0-37.0 MCHC [facility]) 27.4 PG 26.0-34.0 MCH [facility]) 13.3 % 11.5-14.5 RDW [facility] ([facility]) 10.5 FL 8.0-11.0 MPV [facility] ([facility]) 234 KCUMM 130-400 PLT [facility] ([facility]) 0.0 /100 0 NRBC% [facility] ([facility]) New parameters included in the report o f automated CBCNRBC(%/#) Is a direct count of Nucleated Red Blood cell, and will b ereported with every CBC count. WBC will automatically be corrected withthe prese nce of NRBC.

0.00 KCUMM 0.0 NRBC ABS# [facility] ([facility]) ID Date Data Source [id number] 04/10/2020 03:45:00 PM EDT [facility] EN ([facility] [id number] Faison) Name Value Range Interpretation Code Description Data Cheryle rce(s) Supporting Document(s ) 126 MG/DL < 150 TRIGLYCERIDES [facility] ([facility]) 206 MG/DL <200 Above high normal CHOLESTEROL [facility] ([facility]) 55 MG/DL > 60 Below low normal HDL- CHOL [facility] ([facility]) ID Date Data Source [id number] 04/10/2020 03:45:00 PM EDT [facility] EN ([facility] [id number] Faison) Name Value Range Interpretation Description Data Sup porting Code Source(s) Document(s ) 137 MEQ/L 137-145 SODIUM [facility]) 103 MEQ/L 98-107 CHLORIDE [facility] ([facility]) 27 MEQ/L 22-30 CARBON DIOXIDE [facility] ([facility]) 7.6 G/DL 6.3-8.2 TOTAL PROTEIN [facility]) 4.4 G/DL 3.5-5.0 ALBUMIN [facility] ([facility]) 22 IU/L 7-50 ALT [facility]) 31 IU/L 17-59 AST (GOT) [facility]) 79 IU/L 38-126 ALP [facility] ([facility]) 9.3 MG/DL 8.4-10.2 CALCIUM [facility] ([facility]) 18 MG/DL 9-20 BUN [facility] ([facility]) 0.9 MG/DL 0.5-1.3 CREATININE [facility] ([facility]) 0.3 MG/DL 0.2-1.3 BILI, TOTAL [facility] ([facility]) 90 MG/DL 74-106 GLUCOSE [facility] ([facility]) ID Date Data Source [id number] 04/10/2020 03:45:00 PM EDT [facility] EN ([place] [id number] [place] [address]) Name Value Range Interpretation Code Description Data Cheryle rce(s) Supporting Document(s ) 7.11 KCUMM 4.4-11.0 WBC [facility] ([facility]) 4.92 MCUMM 4.4-5.9 RBC [facility]) 41.5 % 41.0-53.0 HCT [facility] ([facility]) 13.5 G/DL 13.5-17.5 HGB [facility]) 84.3 FL 80.0-100.0 MCV [facility] ([facility]) 27.4 PG 26.0-34.0 MCH [facility]) 13.3 % 11.5-14.5 RDW [facility] ([facility]) 32.5 G/DL 32.0-37.0 MCHC [facility]) 234 KCUMM 130-400 PLT [facility] ([facility]) 10.5 FL 8.0-11.0 MPV [facility]) 0.0 /100 0 NRBC% [facility] ([facility]) New parameters included in the report o f automated CBCNRBC(%/#) Is a direct count of Nucleated Red Blood cell, and will b ereported with every CBC count. WBC will automatically be corrected withthe prese nce of NRBC.

0.00 KCUMM 0.0 NRBC ABS# [facility] ([facility]) ID Date Data Source [id number] 04/10/2020 03:45:00 PM EDT [facility] EN ([facility] [id number] Faison) Name Value Range Interpretation Description Data Sup porting Code Source(s) Document(s ) NON-REACTI REACTIVE COVID19 [facility]TIBODY IgG ([facility]) NOTE: Non-reactive results do not rule o ut SARS-CoV-2 infection,particularly inthose who have been in contact with the virus. Follow-up testing with amolecular diagnostic assay should be considered to rule out i nfection inthese individuals.Results from antibody testing should not be used as t he sole basis todiagnose or exclude SARS-CoV-2 or to determine infection sta tus. Falsepositive results may occur due to cross-reactivity from pre-existingantibo dies or other causes. The sensitivity of the assay after earlyinfection is unknown. A t present, it is unknown for how long antibodiespersist after infection.This i mmunoassay has been cleared by the U.S. Food and Drug Administrationunder the Emergen cy Use Authorization (EUA).ASSAY INFORMATION: Chemiluminescence Immunoassay

ID Date Data Source Liver 12/17/2019 02:25:00 PM EST [facility] Profile.[id number] Name Value Range Interpretation Description Data Sup porting Code Source(s) Document(s ) Aspartate 17-59 <content Saint aminotransferase styleCode="Bold"> Armando hs [Enzymatic Aspartate Medical activity/volume] Aminotransferase Center in Serum or Plasma (AST) </content>36 IU/L<content styleCode="Italic s"> (17-59 IU/L)</content> Alanine 7-50 <content Saint aminotransferase styleCode="Bold"> Armando hs [Enzymatic Alanine Medical activity/volume] Aminotransferase Center in Serum or Plasma (ALT) </content>36 IU/L<content styleCode="Italic s"> (7-50 IU/L)</content> Bilirubin.total 0.2-1.3 <content Saint [Mass/volume] in styleCode="Bold"> Armando hs Serum or Plasma Bilirubin Total Medical </content>0.4 Center MG/DL<content styleCode="Italic s"> (0.2-1.3 MG/DL)</content> Alkaline 38-126 <content Saint phosphatase styleCode="Bold"> Kristie [Enzymatic Alkaline Medical activity/volume] Phosphatase (ALP) Cente r in Serum or Plasma </content>82 IU/L<content styleCode="Italic s"> (38-126 IU/L)</content> UNK 0.0-0.3 <content Saint styleCode="Bold"> Kristie Bilirubin, Direct Medical </content>< 0.2 Center MG/DL<content styleCode="Italic s"> (0.0-0.3 MG/DL)</content> Albumin 3.5-5.0 <content Saint [Mass/volume] in styleCode="Bold"> Armando hs Serum or Plasma Albumin Medical </content>4.5 Center G/DL<content styleCode="Italic s"> (3.5-5.0 G/DL)</content> ID Date Data Source HematologyRou.[id number] 12/17/2019 02:25:00 PM EST Alex nt [facility] 0400 Name Value Range Interpretation Description Data Sup porting Code Source(s) Document(s ) Leukocytes 4.4-11.0 Above high <content Saint [#/volume] in normal styleCode="Bold Kristie Blood by ">White Blood Medical Automated count Cell Count Center </content>14.15 KCUMM H<content styleCode="Ital ics"> (4.4-11.0 KCUMM)</content > Erythrocyte mean 80.0-100 <content Saint corpuscular .0 styleCode="Bold Kristie volume [Entitic ">Mean Medical volume] by Corpuscular Center Automated count Volume </content>82.2 FL<content styleCode="Ital ics"> (80.0-100.0 FL)</content> Hematocrit 41.0-53. <content Saint [Volume 0 styleCode="Bold Kristie Fraction] of ">Hematocrit Medical Blood by </content>45.4 Center Automated count %<content styleCode="Ital ics"> (41.0-53.0 %)</content> Hemoglobin 13.5-17. <content Saint [Mass/volume] in 5 styleCode="Bold Kristie Blood ">Hemoglobin Medical </content>14.8 Center G/DL<content styleCode="Ital ics"> (13.5-17.5 G/DL)</content> Erythrocyte mean 26.0-34. <content Saint corpuscular 0 styleCode="Bold Kristie hemoglobin ">Mean Medical [Entitic mass] Corposcular Center by Automated Hemoglobin count </content>26.8 PG<content styleCode="Ital ics"> (26.0-34.0 PG)</content> Erythrocytes 4.4-5.9 <content Saint [#/volume] in styleCode="Bold Kristie Blood by ">Red Blood Medical Automated count Cell Count Center </content>5.52 MCUMM<content styleCode="Ital ics"> (4.4-5.9 MCUMM)</content > Platelets 130-400 <content Saint [#/volume] in styleCode="Bold Kristie Blood by ">Platelet Medical Automated count Count Center </content>311 KCUMM<content styleCode="Ital ics"> (130-400 KCUMM)</content > Platelet mean 8.0-11.0 <content Saint volume [Entitic styleCode="Bold Kristie volume] in Blood ">Mean Platelet Medical by Automated Volume Center count </content>10.0 FL<content styleCode="Ital ics"> (8.0-11.0 FL)</content> Erythrocyte mean 32.0-37. <content Saint corpuscular 0 styleCode="Bold Kristie hemoglobin ">Mean Corpus. Medical concentration Hgb Center [Mass/volume] by Concentration Automated count (MCHC) </content>32.6 G/DL<content styleCode="Ital ics"> (32.0-37.0 G/DL)</content> Erythrocyte 11.5-14. <content Saint distribution 5 styleCode="Bold Kristie width [Ratio] by ">Red Cell Medical Automated count Distribution Center Width </content>12.8 %<content styleCode="Ital ics"> (11.5-14.5 %)</content> UNK 0 <content Saint styleCode="Bold Kristie ">Nucleated Red Medical Blood Cell Center </content>0.0 /100<content styleCode="Ital ics"> (0 /100)</content> UNK 0.0 <content Saint styleCode="Bold Kristie ">Nucleated Red Medical Blood Cell Center Count </content>0.00 KCUMM<content styleCode="Ital ics"> (0.0 KCUMM)</content > ID Date Data Source GFR(Creatinine).[id number] 12/17/2019 02:25:00 PM [facility] 0-0400 Name Value Range Interpretation Code Description Data Cheryle rce(s) Supporting Document(s ) UNK > 60 <content Kristie styleCode="Bold"> Medical Cent er EGFR </content>100 GFR<content styleCode="Italic s"> (> 60 GFR)</content> ID Date Data Source CHMROUTINECCDA.[id number] 12/17/2019 02:25:00 PM [facility] -0400 Name Value Range Interpretation Description Data Sup porting Code Source(s) Document(s ) Lipase 23-300 <content Saint Flowers [Enzymatic styleCode="Bold Medical activity/vo ">Lipase Center lume] in </content>115 Serum or IU/L<content Plasma styleCode="Ital ics"> (23-300 IU/L)</content> UNK 30-110 <content Kristie styleCode="Bold Medical ">Amylase Center </content>66 IU/L<content styleCode="Ital ics"> (30-110 IU/L)</content> ID Date Data Source [employer].[id number] 12/17/2019 02:25:00 PM [facility] -0400 Name Value Range Interpretation Description Data Sup porting Code Source(s) Document(s ) Troponin < 0.034 <content Saint I.cardiac styleCode="Bold Kristie [Mass/volume ">Troponin I Medical ] in Serum </content>< Center or Plasma 0.012 NG/ML<content styleCode="Ital ics"> (< 0.034 NG/ML)</content > ID Date Data Source [facility].[id number] 12/17/2019 02:25:00 PM EST [facility] Center Name Value Range Interpretation Description Data Sup porting Code Source(s) Document(s ) Sodium 137-145 Below low <content Saint [Moles/volume] in normal styleCode="Bold"> Jorge phs Serum or Plasma Sodium Medical </content>136 Center MEQ/L L<content styleCode="Italic s"> (137-145 MEQ/L)</content> Chloride 98-107 <content Saint [Moles/volume] in styleCode="Bold"> Jorge phs Serum or Plasma Chloride Medical </content>102 Center MEQ/L<content styleCode="Italic s"> (98-107 MEQ/L)</content> Potassium 3.5-5.3 <content Saint [Moles/volume] in styleCode="Bold"> Jorge [facility] Serum or Plasma Potassium Medical </content>4.5 Center MEQ/L<content styleCode="Italic s"> (3.5-5.3 MEQ/L)</content> Creatinine 0.5-1.3 <content Saint [Mass/volume] in styleCode="Bold"> Armando hs Serum or Plasma Creatinine Medical </content>0.9 Center MG/DL<content styleCode="Italic s"> (0.5-1.3 MG/DL)</content> Carbon dioxide, 22-30 <content Saint total styleCode="Bold"> Kristie [Moles/volume] in Carbon Dioxide Medical Serum or Plasma </content>28 Center MEQ/L<content styleCode="Italic s"> (22-30 MEQ/L)</content> UNK 9-20 <content Saint styleCode="Bold"> Kristie BUN </content>18 Medical MG/DL<content Center styleCode="Italic s"> (9-20 MG/DL)</content> Glucose 74-106 Above high <content Saint [Mass/volume] in normal styleCode="Bold"> Armando hs Serum or Plasma Glucose Medical </content>109 Center MG/DL H<content styleCode="Italic s"> (74-106 MG/DL)</content> Calcium 8.4-10. <content Saint [Mass/volume] in 2 styleCode="Bold"> Armando hs Serum or Plasma Calcium Medical </content>9.9 Center MG/DL<content styleCode="Italic s"> (8.4-10.2 MG/DL)</content> Aspartate 17-59 <content Saint aminotransferase styleCode="Bold"> Armando hs [Enzymatic Aspartate Medical activity/volume] Aminotransferase Center in Serum or Plasma (AST) </content>36 IU/L<content styleCode="Italic s"> (17-59 IU/L)</content> UNK > 60 <content Saint styleCode="Bold"> Kristie EGFR Medical </content>100 Center GFR<content styleCode="Italic s"> (> 60 GFR)</content> Alanine 7-50 <content Saint aminotransferase styleCode="Bold"> Armando hs [Enzymatic Alanine Medical activity/volume] Aminotransferase Center in Serum or Plasma (ALT) </content>36 IU/L<content styleCode="Italic s"> (7-50 IU/L)</content> Alkaline 38-126 <content Saint phosphatase styleCode="Bold"> Kristie [Enzymatic Alkaline Medical activity/volume] Phosphatase (ALP) Cente r in Serum or Plasma </content>82 IU/L<content styleCode="Italic s"> (38-126 IU/L)</content> Bilirubin.total 0.2-1.3 <content Saint [Mass/volume] in styleCode="Bold"> Armando hs Serum or Plasma Bilirubin Total Medical </content>0.4 Center MG/DL<content styleCode="Italic s"> (0.2-1.3 MG/DL)</content> Albumin 3.5-5.0 <content Saint [Mass/volume] in styleCode="Bold"> Armando hs Serum or Plasma Albumin Medical </content>4.5 Center G/DL<content styleCode="Italic s"> (3.5-5.0 G/DL)</content> ID Date Data Source Urinalysis.[id number] 12/17/2019 02:20:[address] [facility] 0 Name Value Range Interpretation Description Data Sup porting Code Source(s) Document(s ) Color of Urine YELLOW <content Saint styleCode="Jaki Kristie d">Color, Medical Urine Center </content>YELL OW <content styleCode="Kirti lics"> (YELLOW )</content> UNK CLEAR <content Saint styleCode="Jaki Grimess d">Urine Medical Clarity Center </content>JOSE J R <content styleCode="Kirti lics"> (CLEAR )</content> Specific 1.015-1.02 <content Saint gravity of 5 styleCode="Jaki Flowers Urine by Test d">Urine Medical strip Specific Center [employer] </content>1.02 0 <content styleCode="Kirti lics"> (1.015-1.025 )</content> UNK NEGATIVE <content Saint styleCode="Jaki Grimess d">Urine Medical Bilirubin Center </content>NEGA TIVE <content styleCode="Kirti lics"> (NEGATIVE )</content> Ketones NEGATIVE <content Saint [Mass/volume] styleCode="Jaki Flowers in Urine by d">Urine Medical Test strip Ketone Center </content>NEGA TIVE MG/DL<content styleCode="Kirit lics"> (NEGATIVE MG/DL)</conten t> Glucose NEGATIVE <content Saint [Mass/volume] styleCode="Jaki Grimess in Urine by d">Urine Medical Test strip Glucose Center </content>NEGA TIVE MG/DL<content styleCode="Kirti lics"> (NEGATIVE MG/DL)</conten t> Protein NEGATIVE <content Saint [Mass/volume] styleCode="Jaki Grimess in Urine by d">Urine Medical Test strip Protein Center </content>NEGA TIVE MG/DL<content styleCode="Kirti lics"> (NEGATIVE MG/DL)</conten t> Hemoglobin NEGATIVE <content Saint [Presence] in styleCode="Jaki Grimess Urine by Test d">Urine Blood Medical strip </content>NEGA Center TIVE <content styleCode="Kirti lics"> (NEGATIVE )</content> Urobilinogen 0.2-1.0 <content Saint [Units/volume] styleCode="Jaki Grimess in Urine by d">Urine Medical Test strip Urobilinogen Center </content>0.2 MG/DL<content styleCode="Kirti lics"> (0.2-1.0 MG/DL)</conten t> pH of Urine by 4.5-8.0 <content Saint Test strip styleCode="Jaki Kristie d">Urine pH Medical </content>7.0 Center <content styleCode="Kirti lics"> (4.5-8.0 )</content> Leukocyte NEGATIVE <content Saint esterase styleCode="Jaki Grimess [Presence] in d">Urine Medical Urine by Test Leukocyte Center strip </content>NEGA TIVE <content styleCode="Kirti lics"> (NEGATIVE )</content> Nitrite NEGATIVE <content Saint [Presence] in styleCode="Jaki Grimess Urine by Test d">Urine Medical strip Nitrite Center </content>NEGA TIVE <content styleCode="Kirti lics"> (NEGATIVE )</content> ID Date Data Source Liver 12/13/2019 01:03:00 AM EST [facility] Profile.[id number] Name Value Range Interpretation Description Data Sup porting Code Source(s) Document(s ) Aspartate 17-59 <content Saint aminotransferase styleCode="Bold"> Armando hs [Enzymatic Aspartate Medical activity/volume] Aminotransferase Center in Serum or Plasma (AST) </content>32 IU/L<content styleCode="Italic s"> (17-59 IU/L)</content> Alanine 7-50 <content [facility] aminotransferase styleCode="Bold"> Armando hs [Enzymatic Alanine Medical activity/volume] Aminotransferase Center in Serum or Plasma (ALT) </content>32 IU/L<content styleCode="Italic s"> (7-50 IU/L)</content> Alkaline 38-126 <content [facility] phosphatase styleCode="Bold"> Kristie [Enzymatic Alkaline Medical activity/volume] Phosphatase (ALP) Cente r in Serum or Plasma </content>77 IU/L<content styleCode="Italic s"> (38-126 IU/L)</content> Albumin 3.5-5.0 <content Saint [Mass/volume] in styleCode="Bold"> Armando hs Serum or Plasma Albumin Medical </content>3.9 Center G/DL<content styleCode="Italic s"> (3.5-5.0 G/DL)</content> Bilirubin.total 0.2-1.3 <content Saint [Mass/volume] in styleCode="Bold"> Armando hs Serum or Plasma Bilirubin Total Medical </content>0.2 Center MG/DL<content styleCode="Italic s"> (0.2-1.3 MG/DL)</content> UNK 0.0-0.3 <content Saint styleCode="Bold"> [facility] Bilirubin, Direct Medical </content>< 0.2 Center MG/DL<content styleCode="Italic s"> (0.0-0.3 MG/DL)</content> ID Date Data Source HematologyRou.[id number] 12/13/2019 01:03:[address] [facility] 0400 Name Value Range Interpretation Description Data Sup porting Code Source(s) Document(s ) Erythrocytes 4.4-5.9 <content Saint [#/volume] in styleCode="Bold Kristie Blood by ">Red Blood Medical Automated count Cell Count Center </content>4.93 MCUMM<content styleCode="Ital ics"> (4.4-5.9 MCUMM)</content > Leukocytes 4.4-11.0 <content Saint [#/volume] in styleCode="Bold Kristie Blood by ">White Blood Medical Automated count Cell Count Center </content>7.32 KCUMM<content styleCode="Ital ics"> (4.4-11.0 KCUMM)</content > Hemoglobin 13.5-17. Below low normal <content Saint [Mass/volume] in 5 styleCode="Bold Kristie Blood ">Hemoglobin Medical </content>13.3 Center G/DL L<content styleCode="Ital ics"> (13.5-17.5 G/DL)</content> Erythrocyte mean 80.0-100 <content Saint corpuscular .0 styleCode="Bold Kristie volume [Entitic ">Mean Medical volume] by Corpuscular Center Automated count Volume </content>83.4 FL<content styleCode="Ital ics"> (80.0-100.0 FL)</content> Hematocrit 41.0-53. <content Saint [Volume 0 styleCode="Bold Kristie Fraction] of ">Hematocrit Medical Blood by </content>41.1 Center Automated count %<content styleCode="Ital ics"> (41.0-53.0 %)</content> Erythrocyte mean 26.0-34. <content Saint corpuscular 0 styleCode="Bold Kristie hemoglobin ">Mean Medical [Entitic mass] Corposcular Center by Automated Hemoglobin count </content>27.0 PG<content styleCode="Ital ics"> (26.0-34.0 PG)</content> Platelets 130-400 <content Saint [#/volume] in styleCode="Bold Kristie Blood by ">Platelet Medical Automated count Count Center </content>180 KCUMM<content styleCode="Ital ics"> (130-400 KCUMM)</content > Erythrocyte 11.5-14. <content Saint distribution 5 styleCode="Bold Kristie width [Ratio] by ">Red Cell Medical Automated count Distribution Center Width </content>13.0 %<content styleCode="Ital ics"> (11.5-14.5 %)</content> Erythrocyte mean 32.0-37. <content [facility] corpuscular 0 styleCode="Bold Kristie hemoglobin ">Mean Corpus. Medical concentration Hgb Center [Mass/volume] by Concentration Automated count (MCHC) </content>32.4 G/DL<content styleCode="Ital ics"> (32.0-37.0 G/DL)</content> Platelet mean 8.0-11.0 <content Saint volume [Entitic styleCode="Bold Kristie volume] in Blood ">Mean Platelet Medical by Automated Volume Center count </content>9.8 FL<content styleCode="Ital ics"> (8.0-11.0 FL)</content> UNK 0 <content Saint styleCode="Bold Kristie ">Nucleated Red Medical Blood Cell Center </content>0.0 /100<content styleCode="Ital ics"> (0 /100)</content> UNK 0.0 <content Saint styleCode="Bold Kristie ">Nucleated Red Medical Blood Cell Center Count </content>0.00 KCUMM<content styleCode="Ital ics"> (0.0 KCUMM)</content > ID Date Data Source GFR(Creatinine).[id number] 12/13/2019 01:03:00 AM [facility] 0-0400 Name Value Range Interpretation Code Description Data Cheryle rce(s) Supporting Document(s ) UNK > 60 <content [facility] styleCode="Bold"> Medical Cent er EGFR </content>115 GFR<content styleCode="Italic s"> (> 60 GFR)</content> ID Date Data Source CHMROUTINECCDA.[id number] 12/13/2019 01:03:00 AM [facility] -0400 Name Value Range Interpretation Description Data Sup porting Code Source(s) Document(s ) Lipase 23-300 <content [facility] [Enzymatic styleCode="Bold Medical activity/vo ">Lipase Center lume] in </content>133 Serum or IU/L<content Plasma styleCode="Ital ics"> (23-300 IU/L)</content> ID Date Data Source [facility].[id number] 12/13/2019 01:03:00 AM EST [facility] Name Value Range Interpretation Description Data Sup porting Code Source(s) Document(s ) Sodium 137-145 Below low <content Saint [Moles/volume] in normal styleCode="Bold"> Jorge phs Serum or Plasma Sodium Medical </content>136 Center MEQ/L L<content styleCode="Italic s"> (137-145 MEQ/L)</content> Potassium 3.5-5.3 <content Saint [Moles/volume] in styleCode="Bold"> Jorge phs Serum or Plasma Potassium Medical </content>4.2 Center MEQ/L<content styleCode="Italic s"> (3.5-5.3 MEQ/L)</content> Chloride 98-107 <content Saint [Moles/volume] in styleCode="Bold"> Jorge phs Serum or Plasma Chloride Medical </content>104 Center MEQ/L<content styleCode="Italic s"> (98-107 MEQ/L)</content> Carbon dioxide, 22-30 <content Saint total styleCode="Bold"> Kristie [Moles/volume] in Carbon Dioxide Medical Serum or Plasma </content>25 Center MEQ/L<content styleCode="Italic s"> (22-30 MEQ/L)</content> UNK 9-20 <content Saint styleCode="Bold"> Kristie BUN </content>12 Medical MG/DL<content Center styleCode="Italic s"> (9-20 MG/DL)</content> UNK > 60 <content Saint styleCode="Bold"> Kristie EGFR Medical </content>115 Center GFR<content styleCode="Italic s"> (> 60 GFR)</content> Glucose 74-106 <content Saint [Mass/volume] in styleCode="Bold"> Armando hs Serum or Plasma Glucose Medical </content>101 Center MG/DL<content styleCode="Italic s"> (74-106 MG/DL)</content> Creatinine 0.5-1.3 <content Saint [Mass/volume] in styleCode="Bold"> Armando hs Serum or Plasma Creatinine Medical </content>0.8 Center MG/DL<content styleCode="Italic s"> (0.5-1.3 MG/DL)</content> Calcium 8.4-10. <content Saint [Mass/volume] in 2 styleCode="Bold"> Armando hs Serum or Plasma Calcium Medical </content>9.0 Center MG/DL<content styleCode="Italic s"> (8.4-10.2 MG/DL)</content> Aspartate 17-59 <content [facility] aminotransferase styleCode="Bold"> Armando hs [Enzymatic Aspartate Medical activity/volume] Aminotransferase Center in Serum or Plasma (AST) </content>32 IU/L<content styleCode="Italic s"> (17-59 IU/L)</content> Bilirubin.total 0.2-1.3 <content Saint [Mass/volume] in styleCode="Bold"> Armando hs Serum or Plasma Bilirubin Total Medical </content>0.2 Center MG/DL<content styleCode="Italic s"> (0.2-1.3 MG/DL)</content> Alkaline 38-126 <content [facility] phosphatase styleCode="Bold"> Kristie [Enzymatic Alkaline Medical activity/volume] Phosphatase (ALP) Cente r in Serum or Plasma </content>77 IU/L<content styleCode="Italic s"> (38-126 IU/L)</content> Alanine 7-50 <content [facility] aminotransferase styleCode="Bold"> Armando hs [Enzymatic Alanine Medical activity/volume] Aminotransferase Center in Serum or Plasma (ALT) </content>32 IU/L<content styleCode="Italic s"> (7-50 IU/L)</content> Albumin 3.5-5.0 <content Saint [Mass/volume] in styleCode="Bold"> Armando hs Serum or Plasma Albumin Medical </content>3.9 Center G/DL<content styleCode="Italic s"> (3.5-5.0 G/DL)</content> ID Date Data Source Liver 09/28/2019 02:00:00 PM EST [facility] Profile.[id number] Name Value Range Interpretation Description Data Sup porting Code Source(s) Document(s ) Alkaline 38-126 <content [facility] phosphatase styleCode="Bold"> Kristie [Enzymatic Alkaline Medical activity/volume] Phosphatase (ALP) Cente r in Serum or Plasma </content>78 IU/L<content styleCode="Italic s"> (38-126 IU/L)</content> Alanine 7-50 <content [facility] aminotransferase styleCode="Bold"> Armando hs [Enzymatic Alanine Medical activity/volume] Aminotransferase Center in Serum or Plasma (ALT) </content>28 IU/L<content styleCode="Italic s"> (7-50 IU/L)</content> Aspartate 17-59 <content [facility] aminotransferase styleCode="Bold"> Armando hs [Enzymatic Aspartate Medical activity/volume] Aminotransferase Center in Serum or Plasma (AST) </content>31 IU/L<content styleCode="Italic s"> (17-59 IU/L)</content> Bilirubin.total 0.2-1.3 <content Saint [Mass/volume] in styleCode="Bold"> Armando hs Serum or Plasma Bilirubin Total Medical </content>0.7 Center MG/DL<content styleCode="Italic s"> (0.2-1.3 MG/DL)</content> Albumin 3.5-5.0 <content Saint [Mass/volume] in styleCode="Bold"> Armando hs Serum or Plasma Albumin Medical </content>4.6 Center G/DL<content styleCode="Italic s"> (3.5-5.0 G/DL)</content> ID Date Data Source LIPID.[id number] 09/28/2019 02:00:00 PM EST [facility] Name Value Range Interpretation Description Data Sup porting Code Source(s) Document(s ) UNK > 60 Below low normal <content Saint styleCode="Jaki Kristie d">HDL- Medical Cholesterol Center </content>50 MG/DL L<content styleCode="Kirti lics"> (> 60 MG/DL)</conten t> Cholesterol -<200 Above high normal <content Saint [Mass/volume] in styleCode="Jaki Kristie Serum or Plasma d">Cholesterol Medical </content>229 Center MG/DL H<content styleCode="Kirti lics"> (-<200 MG/DL)</conten t> UNK < 100 Above high normal <content Saint styleCode="Jaki Kristie d">LDL-Cholest Medical rey Center </content>150 MG/DL H<content styleCode="Kirti lics"> (< 100 MG/DL)</conten t> Triglyceride < 150 <content Saint [Mass/volume] in styleCode="Jaki Kristie Serum or Plasma d">Triglycerid Medical es Center </content>144 MG/DL<content styleCode="Kirti lics"> (< 150 MG/DL)</conten t> ID Date Data Source GFR(Creatinine).[id number] 09/28/2019 02:00:00 PM [facility] 0-0500 Name Value Range Interpretation Code Description Data Cheryle rce(s) Supporting Document(s ) UNK > 60 <content [facility] styleCode="Bold"> Medical Cent er EGFR </content>100 GFR<content styleCode="Italic s"> (> 60 GFR)</content> ID Date Data Source CHMROUTINECCDA.[id number] 09/28/2019 02:00:00 PM [facility] -0500 Name Value Range Interpretation Description Data Sup porting Code Source(s) Document(s ) UNK >= 1.0 <content [facility] styleCode="Bold Medical ">AG Ratio Center </content>1.4 <content styleCode="Ital ics"> (>= 1.0 )</content> UNK 2.3-3.5 <content [facility] styleCode="Bold Medical ">Globulin Center </content>3.2 G/DL<content styleCode="Ital ics"> (2.3-3.5 G/DL)</content> Protein 6.3-8.2 <content [facility] [Mass/volum styleCode="Bold Medical e] in Serum ">Total Protein Center or Plasma </content>7.8 G/DL<content styleCode="Ital ics"> (6.3-8.2 G/DL)</content> ID Date Data Source [facility].[id number] 09/28/2019 02:00:00 PM EST [facility] Name Value Range Interpretation Description Data Sup porting Code Source(s) Document(s ) Sodium 137-145 <content Saint [Moles/volume] in styleCode="Bold"> Jorge phs Serum or Plasma Sodium Medical </content>138 Center MEQ/L<content styleCode="Italic s"> (137-145 MEQ/L)</content> Potassium 3.5-5.3 <content Saint [Moles/volume] in styleCode="Bold"> Jorge [facility] Serum or Plasma Potassium Medical </content>4.5 Center MEQ/L<content styleCode="Italic s"> (3.5-5.3 MEQ/L)</content> Glucose 74-106 <content Saint [Mass/volume] in styleCode="Bold"> Armando hs Serum or Plasma Glucose Medical </content>88 Center MG/DL<content styleCode="Italic s"> (74-106 MG/DL)</content> UNK 9-20 <content Saint styleCode="Bold"> Kristie BUN </content>14 Medical MG/DL<content Center styleCode="Italic s"> (9-20 MG/DL)</content> Carbon dioxide, 22-30 <content Saint total styleCode="Bold"> Kristie [Moles/volume] in Carbon Dioxide Medical Serum or Plasma </content>27 Center MEQ/L<content styleCode="Italic s"> (22-30 MEQ/L)</content> Chloride 98-107 <content Saint [Moles/volume] in styleCode="Bold"> Jorge [facility] Serum or Plasma Chloride Medical </content>102 Center MEQ/L<content styleCode="Italic s"> (98-107 MEQ/L)</content> Creatinine 0.5-1.3 <content Saint [Mass/volume] in styleCode="Bold"> Armando hs Serum or Plasma Creatinine Medical </content>0.9 Center MG/DL<content styleCode="Italic s"> (0.5-1.3 MG/DL)</content> Alanine 7-50 <content Saint aminotransferase styleCode="Bold"> Armando hs [Enzymatic Alanine Medical activity/volume] Aminotransferase Center in Serum or Plasma (ALT) </content>28 IU/L<content styleCode="Italic s"> (7-50 IU/L)</content> Aspartate 17-59 <content Saint aminotransferase styleCode="Bold"> Armando hs [Enzymatic Aspartate Medical activity/volume] Aminotransferase Center in Serum or Plasma (AST) </content>31 IU/L<content styleCode="Italic s"> (17-59 IU/L)</content> UNK > 60 <content Saint styleCode="Bold"> Kristie EGFR Medical </content>100 Center GFR<content styleCode="Italic s"> (> 60 GFR)</content> Calcium 8.4-10. <content Saint [Mass/volume] in 2 styleCode="Bold"> Armando hs Serum or Plasma Calcium Medical </content>9.8 Center MG/DL<content styleCode="Italic s"> (8.4-10.2 MG/DL)</content> Albumin 3.5-5.0 <content [facility] [Mass/volume] in styleCode="Bold"> Armando hs Serum or Plasma Albumin Medical </content>4.6 Center G/DL<content styleCode="Italic s"> (3.5-5.0 G/DL)</content> Alkaline 38-126 <content [facility] phosphatase styleCode="Bold"> Kristie [Enzymatic Alkaline Medical activity/volume] Phosphatase (ALP) Cente r in Serum or Plasma </content>78 IU/L<content styleCode="Italic s"> (38-126 IU/L)</content> Bilirubin.total 0.2-1.3 <content [facility] [Mass/volume] in styleCode="Bold"> Armando hs Serum or Plasma Bilirubin Total Medical </content>0.7 Center MG/DL<content styleCode="Italic s"> (0.2-1.3 MG/DL)</content> Procedure Social History Code Duration Value Status Description Data Source(s ) Caffeine Use 07/02/2020 completed NEXTGEN (Alex nt Details 12:00:00 AM EDT [facility]) Smoking 07/02/2020 Unknown if completed Unknown if ever NEXTGEN ( 12:00:00 AM EDT ever smoked smoked [facility]) Smoking 05/16/2020 Current completed Current Smoker eCW1 (April t 12:00:00 AM EDT Smoker [facility]) Caffeine Use 05/04/2020 completed NEXTGEN (Alex nt Details 12:00:00 AM EDT [facility]) 05/04/2020 Current completed Current NEXTGEN (Saint 12:00:00 AM EDT non-smoker non-smoker [facility]) Smoking 12/17/2019 Denies Ever completed Denies Ever [facility] 05:18:00 PM EST Smoked Smoked Medical C enter Smoking 12/17/2019 Denies Ever completed Denies Ever [facility] 03:03:00 PM EST Smoked Smoked Medical C enter Smoking 12/17/2019 Denies Ever completed Denies Ever [facility] 01:25:00 PM EST Smoked Smoked Medical C enter Smoking 12/13/2019 Denies Ever completed Denies Ever [facility] 07:01:00 AM EST Smoked Smoked Medical C enter Smoking 12/13/2019 Denies Ever completed Denies Ever [facility] 01:30:00 AM EST Smoked Smoked Medical C enter Smoking 12/13/2019 Denies Ever completed Denies Ever [facility] 01:16:00 AM EST Smoked Smoked Medical C enter Smoking 12/12/2019 Denies Ever completed Denies Ever [facility] 09:50:00 PM EST Smoked Smoked Medical C enter Vital Signs ID Date Data Source UNK Name Value Range Interpretation Code Description Data Source(s) Diastolic blood 81 mm[Hg] 81 mm[Hg] eCW1 (Alex [facility]) Systolic blood 123 mm[Hg] 123 mm[Hg] eCW1 (April t pressure [facility]) Oxygen saturation 100 % 100 % eCW1 (S aint in Arterial blood [facility] by [facility]ulse [facility]xim[facility]) Body temperature 97.7 [degF] 97.7 [degF] eCW1 ( [facility]) Respiratory rate 19 /min 19 /min eCW1 ( int [facility]) Heart rate 65 /min 65 /min eCW1 ([facility]) Body mass index 28.5 kg/m2 28.5 kg/m2 eCW1 (Alex nt (BMI) [Ratio] [facility]) Body weight 193 [lb_av] 193 [lb_av] eCW1 ([facility]) Body height 69 [in_i] 69 [in_i] eCW1 ([facility]) Oxygen saturation 96 % 96 % NEXTGEN (Saint in Arterial blood [facility] by Pulse oximetry Center) Body mass index 29.94 kg/m2 Overweight 29.94 kg/m2 NEXTGEN ([facility] (BMI) [Ratio] [facility]) Respiratory rate 20 /min 20 /min NEXTGEN ([facility]) Body temperature 36.72 Janice 36.72 Janice NEXTGEN ([facility]) Heart rate 70 /min 70 /min NEXTGEN ([facility]) Diastolic blood 79 mm[Hg] 79 mm[Hg] NEXTGEN ( [facility] pressure [facility]) Systolic blood 121 mm[Hg] 121 mm[Hg] NEXTGEN (S nt [facility]) Body weight 87.997 kg 87.997 kg NEXTGEN ([facility]) Body height 171.45 [facility] Oxygen saturation 100 % 100 % NEXTGEN ([facility] in Arterial blood [facility] by Pulse oximetry Center) Body mass index 30.55 kg/m2 Overweight 30.55 kg/m2 NEXTGEN ([facility] (BMI) [Ratio] [facility]) Respiratory rate 20 /min 20 /min NEXTGEN ([facility]) Body temperature 36.56 Janice 36.56 [facility]) Heart rate 64 /min 64 /min [facility] ([facility]) Diastolic blood 70 mm[Hg] 70 mm[Hg] NEXTGEN ( [facility]) Systolic blood 110 mm[Hg] 110 mm[Hg] [facility]GEN [facility]) Body weight 89.811 kg 89.811 kg NEXTGEN ([facility]) Body height 171.45 cm 171.45 [facility]) Body surface area 2.05 m2 2.05 m2 NEXTGEN ([facility]) Body mass index 30.09 kg/m2 Overweight 30.09 kg/m2 NEXTGEN ([facility] (BMI) [Ratio] [facility]) Respiratory rate 20 /min 20 /min NEXTGEN ([facility]) Body temperature 36.72 Janice 36.72 Janice NEXTGEN ([facility]) Heart rate 86 /min 86 /min NEXTGEN ([facility]) Diastolic blood 74 mm[Hg] 74 mm[Hg] NEXTGEN ( [facility] pressure [facility]) Systolic blood 121 mm[Hg] 121 mm[Hg] NEXTGEN ([facility]) Body weight 88.451 kg 88.451 kg NEXTGEN ([facility]) Body height 171.45 cm 171.45 cm [facility] ([facility]) Body temperature 36.198154 36.959288 [facility] Respiratory rate 17 /min 17 /min [facility] Oxygen saturation 96 % 96 % [facility] in Arterial blood [facility] by Pulse oximetry Heart rate 61 /min 61 /min [facility] Diastolic blood 80 mm[Hg] 80 mm[Hg] [facility] Systolic blood 137 mm[Hg] 137 mm[Hg] [facility] Body temperature 36.476552 36.044162 [facility] Respiratory rate 17 /min 17 /min [facility] Oxygen saturation 97 % 97 % [facility] in Arterial blood [facility] by Pulse oximetry Heart rate 62 /min 62 /min [facility] Diastolic blood 75 mm[Hg] 75 mm[Hg] [facility] Systolic blood 133 mm[Hg] 133 mm[Hg] [facility] Body temperature 36.533708 36.037841 [facility] Respiratory rate 17 /min 17 /min [facility] Oxygen saturation 99 % 99 % [facility] in Arterial blood [facility] by Pulse oximetry Heart rate 78 /min 78 /min [facility] Diastolic blood 78 mm[Hg] 78 mm[Hg] [facility] Systolic blood 129 mm[Hg] 129 mm[Hg] [facility] Body temperature 36.114105 [id number] [facility] Respiratory rate 18 /min 18 /min [facility] Heart rate 60 /min 60 /min [facility] Diastolic blood 97 mm[Hg] 97 mm[Hg] [facility] Systolic blood 149 mm[Hg] 149 mm[Hg] [facility] Body temperature 36.872249 36.962686 [facility] Respiratory rate 18 /min 18 /min [facility] Oxygen saturation 99 % 99 % [facility] in Arterial blood [facility] by Pulse oximetry Heart rate 80 /min 80 /min [facility] Diastolic blood 88 mm[Hg] 88 mm[Hg] [facility] Systolic blood 132 mm[Hg] 132 mm[Hg] [facility] Body weight 89.889247 kg 89.469463 kg [facility] Oxygen saturation 100 % 100 % [facility] in [facility] blood [facility] by Pulse oximetry Body height 177.110348 177.305066 cm [facility] Body mass index 28.2 kg/m2 28.2 kg/m2 [facility] (BMI) [Ratio] Medical Addi ter Body temperature 36.976176 36.481995 [facility] Respiratory rate 18 /min 18 /min [facility] Oxygen saturation 98 % 98 % [facility] in [facility] blood [facility] by Pulse oximetry Heart rate 60 /min 60 /min [facility] Diastolic blood 70 mm[Hg] 70 mm[Hg] [facility] Systolic blood 120 mm[Hg] 120 mm[Hg] [facility] Body temperature 36.457437 36.392703 [facility] Respiratory rate 16 /min 16 /min [facility] Oxygen saturation 99 % 99 % [facility] in [facility] blood [facility] by Pulse oximetry Heart rate 62 /min 62 /min [facility] Diastolic blood 61 mm[Hg] 61 mm[Hg] [facility] Systolic blood 116 mm[Hg] 116 mm[Hg] [facility] Body temperature 37.606582 37.229084 [facility] Respiratory rate 18 /min 18 /min [facility] Oxygen saturation 99 % 99 % [facility] in [facility] blood [facility] by Pulse oximetry Heart rate 74 /min 74 /min [facility] Diastolic blood 72 mm[Hg] 72 mm[Hg] [facility] Systolic blood 125 mm[Hg] 125 mm[Hg] [facility] Body temperature 37.752348 37.401547 [facility] Respiratory rate 17 /min 17 /min [facility] Oxygen saturation 98 % 98 % [facility] in Arterial blood [facility] [facility] P[facility]xim[facility] Heart rate 67 /min 67 /min [facility] Diastolic blood 59 mm[Hg] 59 mm[Hg] [facility] Systolic blood 116 mm[Hg] 116 mm[Hg] [facility] Body temperature [id number] [facility] Respiratory rate 18 /min 18 /min [facility] Oxygen saturation 97 % 97 % [facility] by Pulse oximetry Heart rate 81 /min 81 /min [facility] Diastolic blood 41 mm[Hg] 41 mm[Hg] [facility] Systolic blood 100 mm[Hg] 100 mm[Hg] [facility] Body surface area 2.11 m2 2.11 m2 [facility] ([facility]) Body mass index 31.94 kg/m2 Overweight 31.94 kg/m2 [facility] ([facility] (BMI) [Ratio] [facility]) Respiratory rate 18 /min 18 /min [facility] ([facility]) Body temperature 37.11 Janice 37.11 Janice [facility] ([facility]) Heart rate 73 /min 73 /min [facility] ([facility]) Diastolic blood 88 mm[Hg] 88 mm[Hg] [facility] ( [facility] pressure [facility]) Systolic blood 127 mm[Hg] 127 mm[Hg] [facility] ([facility] pressure [facility]) Body weight 93.894 kg 93.894 kg [facility] ([facility]) Body height 171.45 cm 171.45 cm [facility] ([facility]) Oxygen saturation 98 % 98 % [facility] ([facility] in Arterial blood [facility] by Pulse oximetry Center) Body mass index 31.76 kg/m2 Overweight 31.76 kg/m2 [facility] ([facility] (BMI) [Ratio] [facility]) Respiratory rate 18 /min 18 /min [facility] ([facility]) Body temperature 36.67 Janice 36.67 Janice [facility] ([facility]) Heart rate 91 /min 91 /min [facility] ([facility]) Diastolic blood 80 mm[Hg] 80 mm[Hg] [facility] ( [facility]) Systolic blood 122 mm[Hg] 122 mm[Hg] [facility] Body weight 93.349 kg 93.349 kg [facility] ([facility]) Body height 171.45 cm 171.45 cm [facility] ([facility]) Patient Treatment Plan of Care Planned Activity Planned Date Details Description Data Source (s) Sertraline 25 MG Oral 05/04/2020 12:00:00 [facility] ([facility]t [facility]) halobetasol propionate 04/10/2020 12:00:00 [facility] ([facility] 0.0005 MG/MG Topical [facility] Ointment [place]) cetirizine hydrochloride 04/10/2020 12:00:00 [facility] ([facility] 10 MG Oral Tablet [facility]) blood pressure monitor 09/20/2019 12:00:00 [facility] ([facility] kit [facility]) Naproxen 500 MG Oral 06/27/2019 12:00:00 [facility] ([facility] Tablet [Naprosyn] AM [facility]) Ibuprofen 600 MG Oral 06/27/2019 12:00:00 [facility]t [facility]) Hydroxyzine Hydrochloride 05/05/2019 12:00:00 [facility] ([facility] 25 MG Oral Tablet [facility])
[2020-08-13] MEDS ORDERED: SODIUM CHLORIDE 0.9% 500 ML INFUS.BAG IV ONE (04:39)
[2020-08-13] MEDS ORDERED: ACETAMINOPHEN 1000 MG/100 ML VIAL (NON FORMULARY) IVPB ONE (04:39)
--- NOTE | 2020-08-13 04:44 | PDOC ---
History of Present Illness - General Chief Complaint: Cold Symptoms Stated Complaint: FEVER, COUGH, HEADACHE Time Seen by Provider: 08/13/20 04:02 - History of Present Illness Initial Comments: Alex Quinn is a 39 y/o male with PMH of HLD presenting today with 1 day of fever to 100.3 and generalized body aches. No sick contacts. No chest pain/shortness of breath. No abd pain. No back pain. No dysuria/diarrhea. No headache/dizziness. Reports mild nasal congestion. Reports mild non productive cough today. Past History - Medical History Allergies/Adverse Reactions: Allergies Allergy/AdvReac Type Severity Reaction Status Date / Time No Known Allergies Allergy Verified 08/13/20 03:59 Home Medications: Ambulatory Orders NK [No Known Home Medication] 05/01/19 COPD: No - Psycho-Social/Smoking History Smoking History: Never smoked Information on smoking cessation initiated: No - Substance Abuse Hx (Audit-C & DAST Scrn) How often the patient has a drink containing alcohol: Never Score: In Men: 4 or > Positive; In Women: 3 or > Positive: 0 Screen Result (Pos requires Nsg. Audit-10AR): Negative In the last yr the pt used illegal drug/Rx for NonMed reason: No Score: Yes response is considered Positive: 0 Screen Result (Positive result requires Nsg. DAST-10): Negative Review of Systems - Review of Systems Comments:: GENERAL/CONSTITUTIONAL: Reports fever. Reports fatigue. HEAD, EYES, EARS, NOSE AND THROAT: No change in vision. No change in hearing. No sore throat._ CARDIOVASCULAR: No chest pain or shortness of breath_ RESPIRATORY: +mild cough, no hemoptysis_ GASTROINTESTINAL: No nausea, vomiting, diarrhea or constipation._ GENITOURINARY: No dysuria, frequency, or change in urination._ MUSCULOSKELETAL: +muscle aches. No neck or back pain._ SKIN: No rash_ NEUROLOGIC: No headache, vertigo, loss of consciousness, or change in strength/sensation._ ENDOCRINE: No increased thirst. No abnormal weight change_ HEMATOLOGIC/LYMPHATIC: No anemia, easy bleeding, or history of blood clots._ ALLERGIC/IMMUNOLOGIC: No hives or skin allergy._ *Physical Exam - Vital Signs Last Vital Signs Temp Pulse Resp BP Pulse Ox 100.3 F H 90 20 144/72 100 08/13/20 03:58 08/13/20 03:58 08/13/20 03:58 08/13/20 03:58 08/13/20 03:58 - Physical Exam GENERAL: Awake, alert, and oriented to person/place/time, in no acute distress_ HEAD: No signs of trauma, normocephalic, atraumatic _ EYES: PERRLA, EOMI, sclera anicteric, conjunctiva clear_ ENT: Hearing grossly normal, nares patent, oropharynx clear without exudates. No uvular deviation. Moist mucosa_ NECK: Normal ROM, supple, no lymphadenopathy, JVD, or masses_ LUNGS: No distress, speaks in full sentences, clear to auscultation bilaterally _ HEART: Regular rate and rhythm, normal S1 and S2, no murmurs appreciated, peripheral pulses normal and equal bilaterally._ ABDOMEN: Soft, nontender, normoactive bowel sounds. No guarding, no rebound. No masses_ EXTREMITIES: Normal inspection, Normal range of motion, no edema. No clubbing or cyanosis_ NEUROLOGICAL: Cranial nerves II through XII grossly intact. Normal speech, normal gait, no focal sensorimotor deficits _ SKIN: Warm, Dry, normal turgor, no rashes or lesions noted_ ED Treatment Course - RADIOLOGY Radiology Studies Ordered: Category Date Time Status CHEST PA & LAT [RAD] Stat Radiology 08/13/20 04:37 Ordered Medical Decision Making - Medical Decision Making 08/13/20 04:56 39M hx of HLD presenting today with fever, muscle aches, and non productive cough that started today. Tmax 100.3. Did not take any medicine at home. DDx includes influenza vs covid vs viral URI. -EKG -CXR -flu swab -covid swab -tylenol 08/13/20 05:09 EKG shows 84 bpm, NSR, no axis deviation, DC 152, QTc 430, no ST elevation/depression. CXR negative for acute intrathoracic pathology. 08/13/20 05:45 Pt reassessed. Plan to d/c home with PCP f/u and Tylenol for fever control. All questions answered. Return precautions given. Pt verbalized understanding and agreement with plan. Discharge - Discharge Information Problems reviewed: Yes Clinical Impression/Diagnosis: Fever, Muscle ache Condition: Stable Disposition: HOME - Admission No - Follow up/Referral Referrals: Jolie Wei [Primary Care Provider] - - Patient Discharge Instructions Patient Printed Discharge Instructions: DI for Viral Upper Respiratory Infection -- Adult, DI for Fever (Symptom) -- Adult Additional Instructions: Please take Tylenol for your pain and fever (follow instructions on the package). If you experience any new, worsening, or concerning symptoms, including difficulty breathing, chest pain, dizziness, or any other concerns, please return to the emergency department. [place] Tylenol para el dolor y la fiebre (siga las instrucciones del paquete). Si experimenta algn sntoma nuevo, que empeora o que le preocupa, brian dificultad para respirar, dolor en el pecho, mareos o cualquier otra inquietud, regrese al departamento de emergencias. - Post Discharge Activity
[2020-08-13] MEDS ORDERED: ACETAMINOPHEN 325 MG TABLET (FP) PO ONE (04:56)
[2020-08-13] MEDS ORDERED: ACETAMINOPHEN 325 MG TABLET (FP) ONE (04:59)
--- NOTE | 2020-08-13 05:18 | PDOC ---
Attending Attestation - Resident Resident Name: Niarnjan Grayson - ED Attending Attestation I have performed the following: I have examined & evaluated the patient, The case was reviewed & discussed with the resident, I agree w/resident's findings & plan, Exceptions are as noted - HPI HPI: 39 yo M history HL presents with fever x1 day, body aches. No known sick contacts, however, he recently attended a child's birthday alliance party. No change in s ense of smell or taste, no cp, no SOB. +Nasal congestion. +Dry cough. - Physicial Exam PE: GENERAL: Awake, alert, and fully oriented, in no acute distress HEAD: No signs of trauma EYES: PERRLA, EOMI, sclera anicteric, conjunctiva clear ENT: Auricles normal inspection, hearing grossly normal, nares with B/L crusting, oropharynx clear without exudates. Moist mucosa NECK: Normal ROM, supple, no lymphadenopathy, JVD, or masses LUNGS: Breath sounds equal, clear to auscultation bilaterally. No wheezes, and no crackles HEART: Regular rate and rhythm, normal S1 and S2, no murmurs, rubs or gallops ABDOMEN: Soft, nontender, normoactive bowel sounds. No guarding, no rebound. No masses EXTREMITIES: Normal range of motion, no edema. No clubbing or cyanosis. No cords, erythema, or tenderness NEUROLOGICAL: Cranial nerves II through XII grossly intact. Normal speech, normal gait. Motor and sensation intact SKIN: Warm, dry, normal turgor, no rashes or lesions noted. - Medical Decision Making Pt presents with URI symptoms, fever. Will swab for flu, COVID. Stable for DC home, as he is not hypoxic, not tachypneic. Discharge - Discharge Information Problems reviewed: Yes Clinical Impression/Diagnosis: Muscle ache Fever Qualifiers: Fever type: unspecified Qualified Code(s): R50.9 - Fever, unspecified Condition: Stable Disposition: HOME - Follow up/Referral Referrals: Jolie Wei [Primary Care Provider] - - Patient Discharge Instructions Patient Printed Discharge Instructions: DI for Viral Upper Respiratory Infection -- Adult, DI for Fever (Symptom) -- Adult Additional Instructions: Please take Tylenol for your pain and fever (follow instructions on the package). If you experience any new, worsening, or concerning symptoms, including difficulty breathing, chest pain, dizziness, or any other concerns, please return to the emergency department. [place] Tylenol para el dolor y la fiebre (siga las instrucciones del paquete). Si experimenta algn sntoma nuevo, que empeora o que le preocupa, brian dificultad para respirar, dolor en el pecho, mareos o cualquier otra inquietud, regrese al departamento de emergencias. - Post Discharge Activity
[2020-08-13 06:00] VITALS: BP 108/67; PULSE 91; TEMP 99.4
--- NOTE | 2020-08-13 09:37 | EKG ---
Test Reason : Blood Pressure : / mmHG Vent. Rate : 084 BPM Atrial Rate : 084 BPM P-R Int : 152 ms QRS Dur : 090 ms QT Int : 364 ms P-R-T Axes : 064 -08 032 degrees QTc Int : 430 ms NORMAL SINUS RHYTHM NORMAL ECG WHEN COMPARED WITH ECG OF 01-MAY-2019 16:19, NO SIGNIFICANT CHANGE WAS FOUND Confirmed by LOR DAUGHERTY MD ([id number]) on 08/13/2020 9:37:26 AM Referred By: Confirmed By:LOR DAUGHERTY MD
== END 2020-08-13 06:04 | disposition home or self-care (01) ==
LOC: JER 03:50
PROC: 3E0333Z Introduction of Anti-inflammatory into Peripheral Vein, Percutaneous Approach (ICD-10-PCS; principal; 2020-08-13)
DX: R50.9 Fever, unspecified (principal); M79.10 Myalgia, unspecified site
CPT/HCPCS: 71046-TC-FY; 87804; 93005; 93010; 99285-25; C9803; U0003